=== PATIENT | female | born 2000 | race Caucasian/White ===

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

== ENCOUNTER 2018-07-04 03:19 | Inpatient (IN) ==
--- OUTSIDE RECORDS SUMMARY | 2018-07-04 03:22 | External Medical Summary | Continuity of Care Document ---
:2000 Author Name Pk Oh, Provider Address Unavailable Unavailable , Care Team Providers Name Role Phone Mela Muñoz Unavailable [email or web address], Yolis Unavailable [email or web address] ROBERTS Unavailable Unavailable Unavailable Unavailable Unavailable Problems Polycystic ovaries (256.4) (E28.2) Attention deficit hyperactivity disorder (ADHD) (314.01) (F9 0.9) Anxiety disorder (300.00) (F41.9) Common migraine without aura (346.10) (G43.009) Conductive hearing loss (389.00) (H90.2) Obesity (278.00) (E66.9) Prehypertension (796.2) (R03.0) Hypothyroidism (244.9) (E03.9) Allergies and Adverse Reactions Penicillins (Allergy) Medications metFORMIN HCl - 500 MG Oral Tablet; TAKE 2 TABLET Every twel ve hours Refills: 0 Levothyroxine Sodium 88 MCG Oral Tablet; TAKE 1 TABLET DAILY DIRECTED. SHARRON Roberts Start: 23-Oct-2014 Quantity: 90 Refills: 3 traZODone HCl - 50 MG Oral Tablet; TAKE 1 TABLET AT BEDTIME NEEDED FOR SLEEP. Althea Awad Start: 04-Apr-2017 Quantity: 30 Refills: 0 FLUoxetine HCl - 40 MG Oral Capsule; TAKE 40 MG Daily Althea Patel Start: 09-Jun-2018 Quantity: 30 Refills: 2 1.5-30 MG-MCG Oral Tablet; TAKE 1 TABLET DAILY DIRECTED. Althea Awad Start: 26-Mar-2014 Quantity: 1 Refills: 3 Procedures History of Myringotomy - With Ventilating Tube Insertion Status: Completed History of Tonsillectomy With Adenoidectomy Status: Completed History of Cholecystectomy Laparoscopic Status: Completed History of wisdom tooth extraction Statu s: Completed Immunizations DTaP On: 1998 HIB On: 1998 IPV On: 1998 DTaP On: 23-Feb-1999 HIB On: 23-Feb-1999 IPV On: 23-Feb-1999 DTaP On: 22-Apr-1999 HIB On: 22-Apr-1999 Hepatitis B On: 22-Apr-1999 Hepatitis B On: 27-Jul-1999 DTaP On: 03-Nov-1999 HIB On: 03-Nov-1999 IPV On: 03-Nov-1999 Hepatitis B On: 03-Nov-1999 MMR On: 03-Nov-1999 Varicella On: Jan-2000 DTaP On: 23-Oct-2003 IPV On: 23-Oct-2003 MMR On: 23-Oct-2003 Influenza On: 06-Dec-2003 Influenza On: 09-Jan-2004 Influenza On: 25-Nov-2005 Varicella On: 31-Jan-2007 Influenza On: 31-Jan-2007 Influenza (Nasal) On: 09-Feb-2008 Influenza On: 30-Jan-2009 15:55 Lot #: [id number], [employer] FluMist LIQD On: 28-Nov-2009 11:42 Lot #: [id number], [employer] Hepatitis A On: 10-Mar-2010 16:15 Lot #: [id number], [employer] Meningo (Menactra) On: 10-Mar-2010 16:16 Lot #: [id number], [employer] HPV (Gardasil) On: 10-Mar-2010 16:15 Lot #: [id number], [employer] Tdap (Adacel) On: 10-Mar-2010 16:16 Lot #: [id number], [employer] HPV (Gardasil) On: 30-Apr-2010 11:58 Lot #: [id number], [employer] FluMist LIQD On: 14-Oct-2010 12:44 Lot #: [id number], [employer] Hepatitis A On: 14-Oct-2010 12:45 Lot #: [id number], [employer] HPV (Gardasil) On: 14-Oct-2010 12:45 Lot #: [id number], [employer] FluMist LIQD On: 02-Dec-2011 16:09 Lot #: [id number], [employer] Influenza (Nasal) On: 09-Dec-2012 8:27 Lot #: [id number], [employer] FluMist Quadrivalent Nasal Suspension On: 21-Dec-2013 9:36 Lot #: [id number], [employer] Menactra Intramuscular Injectable On: 23-Oct-2014 13:01 Lot #: [id number], [employer] Fluzone INJ On: 23-Oct-2014 13:02 Lot #: [id number], [employer] Fluzone SUSP On: 11-Dec-2015 12:13 Lot #: [id number], [employer] Trumenba Intramuscular Suspension Prefilled Syringe On: 12:14 Lot #: [id number], [employer]. Trumenba Intramuscular Suspension Prefilled Syringe On: 2016 Lot #: [id number], [employer]. Fluzone Quadrivalent 0.5 ML Intramuscular Suspension P refilled Syringe On: Nov-2016 Lot #: [id number], [employer] Fluzone Quadrivalent 0.5 ML Intramuscular Suspension P refilled Syringe On: Dec-2017 Lot #: [id number], [employer] Family History Mother Family history of Depression with anxiety (300.4) (F41.8) St atus: Active Family history of hypothyroidism (V18.19) (Z83.49) Status: A ctive Family history of Eating Disorder Status: Active Family history of ovarian cyst (V18.7) (Z84.2) Status: Activ e Father Family history of Depression with anxiety (300.4) (F41.8) St atus: Active Family history of alcoholism (V17.0) (Z81.1) Status: Active Family history of Hyperlipidemia Status: Active aunt Family history of uterine leiomyoma (V18.7) (Z87.898) Status : Active great grandmother Family history of malignant neoplasm of breast (V16.3) (Z80. 3) Status: Active Grandmother Family history of hypothyroidism (V18.19) (Z83.49) Status: A ctive Family history of Type 2 Diabetes Mellitus Status: Active Family history of Acute Myocardial Infarction (V17.3) Status : Active uncle Family history of Bipolar disorder (296.80) (F31.9) Status: Active Grandparent Family history of anxiety disorder (V17.0) (Z81.8) Status: A ctive Sister Family history of Eating Disorder Status: Active Grandfather Family history of Type 2 Diabetes Mellitus Status: Active Social History - Smoking Status Never smoker Never smoker Plan of Treatment Planned Encounters Appointment; Yolis Paz M.D. Start: 14-Nov-2018 9:30 Requ est Planned Observations Planned Goals not documented Results No Known Results Results not documented Encounters Appointment; Bessie Baker PA-C 10-Feb-2018 15:00 Encounter Diagnosis: Problem not documented Appointment; Gauri Carty M.D. 10-Jan-2018 8:30 Encounter Diagnosis: Problem not documented Appointment; Paty Zelaya PA-C 25-Nov-2017 14:20 Encounter Diagnosis: Problem not documented Appointment; Naomi Marie PA-C 25-Jul-2017 16:00 Encounter Diagnosis: Problem not documented Appointment; Paty Zelaya PA-C 20-May-2017 8:20 Encounter Diagnosis: Problem not documented Appointment; Jacinta Awad M.D. 13-Dec-2016 14:30 Encounter Diagnosis: Problem not documented Appointment; Bessie Baker PA-C 02-Dec-2016 14:30 Encounter Diagnosis: Problem not documented Appointment; Taylor Leal PA-C 24-Nov-2016 16:00 Encounter Diagnosis: Problem not documented Appointment; Naomi Marie PA-C 17-Nov-2016 16:30 Encounter Diagnosis: Problem not documented Appointment; Paty Zelaya PA-C 16-Nov-2016 15:20 Encounter Diagnosis: Problem not documented Appointment; Naomi Marie PA-C 01-Nov-2016 15:30 Encounter Diagnosis: Problem not documented Appointment; Naomi Marie PA-C 27-Oct-2016 16:00 Encounter Diagnosis: Problem not documented Appointment; OBJJ SC2, Ultrasound 22-Oct-2016 13:00 Encounter Diagnosis: Problem not documented Appointment; Evelina Duncan PA-C 12-Oct-2016 15:00 Encounter Diagnosis: Problem not documented Appointment; Moncho Booth Au.D.|[facility] 23-Sep-2016 13:00 Encounter Diagnosis: Problem not documented Appointment; Naomi Marie PA-C 13-Sep-2016 16:45 Encounter Diagnosis: Problem not documented Appointment; Moncho Booth Au.D.|[facility] 03-Sep-2016 11:20 Encounter Diagnosis: Problem not documented Appointment; Yolis Paz M.D. 14-Nov-2018 9:30 Encounter Diagnosis: Problem not documented"
[2018-07-04 04:02] LABS: Pregnancy Test, Urine Negative (Negative)
[2018-07-04 04:02] LABS: Basophils # (auto) 0.01 K/uL (0-0.2); Basophils % (auto) 0.1 %; Eosinophils # (auto) 0.15 K/uL (0-0.5); Eosinophils % (auto) 1.5 %; Hematocrit (blood only) 41.6 % (37-47); Immature Granulocytes # (auto) 0.02 K/uL (0.00-0.02); Immature Granulocytes % (auto) 0.2 %; Lymphocytes # (auto) 2.87 K/uL (1.2-3.4); Lymphocytes % (auto) 28.9 %; Mean Corpuscular Hgb Conc 33.7 g/dL (32-36); Mean Corpuscular Volume 89.5 fL (80-100); Mean Platelet Volume 11.1 fL (7.4-10.4); Monocytes # (auto) 0.76 K/uL (0.11-0.59); Monocytes % (auto) 7.7 %; Neutrophils # (auto) 6.12 K/uL (1.4-6.5); Neutrophils % (auto) 61.6 %; Platelet Count 233 K/uL (130-400); RDW Coefficient of Variation 12.5 % (11.5-14.5); RDW Standard Deviation 40.4 fL (36.4-46.3); Red Blood Count 4.65 M/uL (4.2-5.4); White Blood Count 9.93 K/uL (4.8-10.8)
[2018-07-04 04:03] LABS: Appearance Urine Clear (Clear); Bacteria Urine Automated Negative (Negative); Bilirubin Urine Negative (Negative); Blood Urine Negative (Negative); Color Urine Yellow; Epithelial Cell Urine Auto >30 /lpf (0-5); Glucose Urine UA Negative (Negative); Ketones Urine Negative (Negative); Leukocyte Esterase Urine 1+ (Negative); Nitrite Urine Negative (Negative); Protein Urine Negative (Negative); RBC Urine Automated 0-4 /hpf (0-4); Specific Gravity Urine 1.021 (1.000-1.030); Urobilinogen Urine Negative (Negative); pH Urine 6.5 (4.5-7.5)
[2018-07-04 04:23] LABS: Amphetamines+Metham, Urine Neg (Neg); Barbiturates, Urine Neg (Neg); Benzodiazepine, Urine Neg (Neg); Cocaine, Urine Neg (Neg); MDMA (Ecstacy), Urine Neg (Neg); Methadone, Urine Neg (Neg); Opiate, Urine Neg (Neg); Phencyclidine, Urine Neg (Neg)
[2018-07-04 04:24] LABS: Albumin Level 3.3 gm/dl (3.4-5.0); BUN Creatinine Ratio 17.1 (10-20); Calcium 9.4 mg/dl (8.5-10.1); Est GFR (African American) 138.4; Est GFR (Non-African American) 119.4; Potassium 3.9 mmol/L (3.5-5.1)
[2018-07-04 04:28] LABS: Acetaminophen < 2 ug/ml (10-30); Salicylate < 1.7 mg/dl (2.8-20)
[2018-07-04 04:34] LABS: Albumin Globulin Ratio 0.7 (0.9-2); Bilirubin,Total 0.3 mg/dl (0.2-1); Globulin 4.5 gm/dl (2.5-4.0); T4 Free Thyroxine 1.19 ng/dl (0.8-1.6); Total Protein 7.8 gm/dl (6.4-8.2)
--- NOTE | 2018-07-04 05:15 | Emergency Department Note ---
Entered by Ant Murphy acting as a scribe for ED Provider Note Name: Ann Marie Salcedo Age: 17 Arrives Via: Triage Informant: Self CC: Mental Health Evaluation HPI: 17 y/o female arrives for evaluation of worsening depression beginning a few years ago. The patient states she has been depressed for a few years and has been feeling excessively down recently. She reports she believes it was triggered by her dog passing recently. 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 She states she was happy with the semester and was happy to come home before her dog . The patient reports her thought of wanting to hurt herself have worsened, and she has thought about strangling herself or overdosing on pills. She notes she has not physically hurt herself yet. The patient states she has been diagnosed with clinical depression and anxiety, and her psychiatrist is Kristin Kwon. She reports it is difficult for her to see her psychiatrist throughout the school year because she is located in [place], and the patient goes to school in [place]. The patient notes she was on Sertraline then Abilify and now Prozac. She states she does not think the Prozac is working. The patient reports her thoughts of wanting to hurt herself have increased to wanting to hurt her family and her animals. She notes she does not have medication for her anxiety. The patient states lost 6 pounds over the past week because she has not been eating. She reports a history of thyroid issues and taking hydrotheroxide ever since she can remember. The patient notes she is not violent and this is scary for her to think this way. She states her uncle killed himself 8 years ago. The patient denies abusive relationships at home, concerns for , abnormal menstrual cycles, alcohol use, drug use, and smoking use. She also notes her father has addictive tendencies. ROS: See above HPI for pertinent positives & negatives. A total of 10 systems reviewed and were otherwise negative. Past Medical History: Clinical depression, anxiety Past Surgical History: None Family History: Addictive tendencies Social History: Lives at home Home Medications: Prozac, hydrotheroxide Allergies Penicillins Physical: Vitals: BP 142/102, Pulse 118, Resp 20, Temp 98.6 F, O2Sat 97 Exam: GENERAL: Patient is sad appearing, crying, and depressed. EYES: No scleral icterus, unremarkable pupils. ENT: Mucous membranes moist, no nasal congestion. NECK: No masses appreciated, no meningismus, trachea is midline. RESPIRATORY: No dyspnea. Clear to auscultation and equal bilaterally. No wheeze, no rhonchi. CARDIOVASCULAR: Regular rate and rhythm. No murmurs, rubs, gallops appreciated. GASTROINTESTINAL: Abdomen soft, non-tender, no peritonitis. Bowel sounds positive. No masses appreciated. BACK: No midline tenderness, no CVA tenderness EXTREMITIES: Normal motion all extremities, no cyanosis, no edema. NEUROLOGIC: Alert and oriented, no acute motor or sensory deficits, no focal weakness, cranial nerves grossly intact. SKIN: No rash, no jaundice, no diaphoresis. PSYCH: Admits to suicidal ideations, homicidal ideations, and depression. ED Course: Prior Medical Record, Triage/Nursing Notes, Medications, Allergies reviewed by Me Vital Signs: reviewed and remarkable for HTN, Tachy (resolving as calming down) Labs: Reviewed and remarkable for Normal psych work-up Consults: Case Management feels inpatient criteria met which I and patient agree with Reassessments/Times: 0339: The patient was evaluated in room A07. A complete history and physical exam was performed. 0434: The patient is medially cleared. Local facilities are full. The patient is okay with waiting until morning to see if places open up for inpatient treatment. 0537: The mother is at the bedside. The patient is agreeable with me talking about her case in front of her mother. Both are agreeable to inpatient psych iatric treatment. 0630: The patient was signed out to Dr. Jones at the change of shift pending psychiatric placement. Blood pressure: Elevated - [place] to be Situation. Disposition: Signed out to Dr Jones pending placement Differentials: Mood Disorder, Overdose, Infectious, Electrolyte Abnormality, Cardiac, Hepatic, Endocrine, Toxicologic, Neurologic, amongst other pathologies Entertained. Medical Decision Making: Sad 17 yr old female recently finished first year of college and came home to house where her dog just recently. She is quite depressed with new suicidal and homicidal ideation. Is in no way aggressive nor violent while here nor for police. Medically is clear. She and mother are agreeable to inpatient treatment. Morning medications ordered. Signed out to Dr Jones pending placement. Impression: Suicidal Ideation Homicidal Ideation Depression Moncho Kwok MD The scribe's documentation has been prepared under my direction and personally reviewed by me in its entirety. I confirm that the note above accurately reflects all work, treatment, procedures, and medical decision making performed by me. 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: No Beliefs That Will Affect Care: None Feels Safe at Home: Yes Smoking Status: Never smoker Results & Data Vital Signs Vital Signs - 24 hr 07/04/18 08:51 07/04/18 13:30 Pulse Rate [Right Finger] 94 H 90 Pulse Rhythm [Right Finger] Regular Respiratory Rate 18 16 Respiratory Effort / Characteristics Non-Labored Non-Labored Respiratory Depth Normal Normal Respiratory Pattern Regular Blood Pressure [Right Arm] 146/84 H 121/71 Blood Pressure Mean [Right Arm] 104 87 Pulse Oximetry 99 95 Oxygen Delivery Method Room Air Room Air Home Medications Current Medication List: was personally reviewed by me Laboratory Data Attestation: I reviewed the patient's lab results. Result diagrams: 07/04/18 03:51 07/04/18 03:51 Lab Results 07/04/18 07/04/18 07/04/18 Range/Units 03:37 03:37 03:37 WBC (4.8-10.8) K/uL RBC (4.2-5.4) M/uL Hgb (12.0-16.0) g/dL Hct (37-47) % MCV (80-100) fL MCH (25-34) pg MCHC (32-36) g/dL RDW Std Deviation (36.4-46.3) fL RDW Coeff of Allie (11.5-14.5) % Plt Count (130-400) K/uL MPV (7.4-10.4) fL Immature Gran % (Auto) % Neut % (Auto) % Lymph % (Auto) % [place] % (Auto) % Eos % (Auto) % Baso % (Auto) % Immature Gran # (Auto) (0.00-0.02) K/uL Neut # (Auto) (1.4-6.5) K/uL Lymph # (Auto) (1.2-3.4) K/uL [place] # (Auto) (0.11-0.59) K/uL Eos # (Auto) (0-0.5) K/uL Baso # (Auto) (0-0.2) K/uL Sodium (136-145) mmol/L Potassium (3.5-5.1) mmol/L Chloride (98-107) mmol/L Carbon Dioxide (21-32) mmol/L Anion Gap (3-11) BUN (7-18) mg/dl Creatinine (0.6-1.2) mg/dl Est Cr Clr Drug Dosing ml/min Est GFR ( Amer) Est GFR (Non-Af Amer) BUN/Creatinine Ratio (10-20) Glucose (70-99) mg/dl Calcium (8.5-10.1) mg/dl Total Bilirubin (0.2-1) mg/dl AST (15-37) U/L ALT (12-78) U/L Alkaline Phosphatase (45-117) U/L Total Protein (6.4-8.2) gm/dl Albumin (3.4-5.0) gm/dl Globulin (2.5-4.0) gm/dl Albumin/Globulin Ratio (0.9-2) TSH (0.300-4.500) uIu/ml Free T4 (0.8-1.6) ng/dl Urine Color Yellow Urine Appearance Clear (Clear) Urine pH 6.5 (4.5-7.5) Ur Specific [place] 1.021 (1.000-1.030) Urine Protein Negative (Negative) Urine Glucose (UA) Negative (Negative) Urine Ketones Negative (Negative) Urine Blood Negative (Negative) Urine Nitrite Negative (Negative) Urine Bilirubin Negative (Negative) Urine Urobilinogen Negative (Negative) Ur Leukocyte Esterase 1+ H (Negative) Urine WBC (Auto) 10-30 H (0-5) /hpf Urine RBC (Auto) 0-4 (0-4) /hpf U Hyaline Cast (Auto) 1-5 (0-5) /lpf U Epithel Cells (Auto) >30 H (0-5) /lpf Urine Bacteria (Auto) Negative (Negative) Urine Test Negative (Negative) Salicylates (2.8-20) mg/dl Urine Opiates Screen Neg (Neg) Ur Methadone, Qual Neg (Neg) Acetaminophen (10-30) ug/ml Urine Barbiturates Neg (Neg) Ur Phencyclidine (PCP) Neg (Neg) U Amphetamin/Meth Scrn Neg (Neg) MDMA (Ecstasy) Screen Neg (Neg) U Benzodiazepines Scrn Neg (Neg) Ur Cocaine Metabolite Neg (Neg) U Marijuana (THC) Screen Neg (Neg) Ethyl Alcohol mg/dL (0-3) mg/dl 07/04/18 07/04/18 07/04/18 Range/Units 03:51 03:51 03:51 WBC 9.93 (4.8-10.8) K/uL RBC 4.65 (4.2-5.4) M/uL Hgb 14.0 (12.0-16.0) g/dL Hct 41.6 (37-47) % MCV 89.5 (80-100) fL MCH 30.1 (25-34) pg MCHC 33.7 (32-36) g/dL RDW Std Deviation 40.4 (36.4-46.3) fL RDW Coeff of Allie 12.5 (11.5-14.5) % Plt Count 233 (130-400) K/uL MPV 11.1 H (7.4-10.4) fL Immature Gran % (Auto) 0.2 % Neut % (Auto) 61.6 % Lymph % (Auto) 28.9 % [place] % (Auto) 7.7 % Eos % (Auto) 1.5 % Baso % (Auto) 0.1 % Immature Gran # (Auto) 0.02 (0.00-0.02) K/uL Neut # (Auto) 6.12 (1.4-6.5) K/uL Lymph # (Auto) 2.87 (1.2-3.4) K/uL [place] # (Auto) 0.76 H (0.11-0.59) K/uL Eos # (Auto) 0.15 (0-0.5) K/uL Baso # (Auto) 0.01 (0-0.2) K/uL Sodium 137 (136-145) mmol/L Potassium 3.9 (3.5-5.1) mmol/L Chloride 103 (98-107) mmol/L Carbon Dioxide 28 (21-32) mmol/L Anion Gap 6.0 (3-11) BUN 13 (7-18) mg/dl Creatinine 0.73 (0.6-1.2) mg/dl Est Cr Clr Drug Dosing 129.0 ml/min Est GFR ( Amer) 138.4 Est GFR (Non-Af Amer) 119.4 BUN/Creatinine Ratio 17.1 (10-20) Glucose 100 H (70-99) mg/dl Calcium 9.4 (8.5-10.1) mg/dl Total Bilirubin 0.3 (0.2-1) mg/dl AST 9 L (15-37) U/L ALT 17 (12-78) U/L Alkaline Phosphatase 92 (45-117) U/L Total Protein 7.8 (6.4-8.2) gm/dl Albumin 3.3 L (3.4-5.0) gm/dl Globulin 4.5 H (2.5-4.0) gm/dl Albumin/Globulin Ratio 0.7 L (0.9-2) TSH 3.770 (0.300-4.500) uIu/ml Free T4 1.19 (0.8-1.6) ng/dl Urine Color Urine Appearance (Clear) Urine pH (4.5-7.5) Ur Specific [place] (1.000-1.030) Urine Protein (Negative) Urine Glucose (UA) (Negative) Urine Ketones (Negative) Urine Blood (Negative) Urine Nitrite (Negative) Urine Bilirubin (Negative) Urine Urobilinogen (Negative) Ur Leukocyte Esterase (Negative) Urine WBC (Auto) (0-5) /hpf Urine RBC (Auto) (0-4) /hpf U Hyaline Cast (Auto) (0-5) /lpf U Epithel Cells (Auto) (0-5) /lpf Urine Bacteria (Auto) (Negative) Urine Test (Negative) Salicylates < 1.7 L (2.8-20) mg/dl Urine Opiates Screen (Neg) Ur Methadone, Qual (Neg) Acetaminophen < 2 L (10-30) ug/ml Urine Barbiturates (Neg) Ur Phencyclidine (PCP) (Neg) U Amphetamin/Meth Scrn (Neg) MDMA (Ecstasy) Screen (Neg) U Benzodiazepines Scrn (Neg) Ur Cocaine Metabolite (Neg) U Marijuana (THC) Screen (Neg) Ethyl Alcohol mg/dL (0-3) mg/dl 07/04/18 Range/Units 03:51 WBC (4.8-10.8) K/uL RBC (4.2-5.4) M/uL Hgb (12.0-16.0) g/dL Hct (37-47) % MCV (80-100) fL MCH (25-34) pg MCHC (32-36) g/dL RDW Std Deviation (36.4-46.3) fL RDW Coeff of Allie (11.5-14.5) % Plt Count (130-400) K/uL MPV (7.4-10.4) fL Immature Gran % (Auto) % Neut % (Auto) % Lymph % (Auto) % [place] % (Auto) % Eos % (Auto) % Baso % (Auto) % Immature Gran # (Auto) (0.00-0.02) K/uL Neut # (Auto) (1.4-6.5) K/uL Lymph # (Auto) (1.2-3.4) K/uL [place] # (Auto) (0.11-0.59) K/uL Eos # (Auto) (0-0.5) K/uL Baso # (Auto) (0-0.2) K/uL Sodium (136-145) mmol/L Potassium (3.5-5.1) mmol/L Chloride (98-107) mmol/L Carbon Dioxide (21-32) mmol/L Anion Gap (3-11) BUN (7-18) mg/dl Creatinine (0.6-1.2) mg/dl Est Cr Clr Drug Dosing ml/min Est GFR ( Amer) Est GFR (Non-Af Amer) BUN/Creatinine Ratio (10-20) Glucose (70-99) mg/dl Calcium (8.5-10.1) mg/dl Total Bilirubin (0.2-1) mg/dl AST (15-37) U/L ALT (12-78) U/L Alkaline Phosphatase (45-117) U/L Total Protein (6.4-8.2) gm/dl Albumin (3.4-5.0) gm/dl Globulin (2.5-4.0) gm/dl Albumin/Globulin Ratio (0.9-2) TSH (0.300-4.500) uIu/ml Free T4 (0.8-1.6) ng/dl Urine Color Urine Appearance (Clear) Urine pH (4.5-7.5) Ur Specific [place] (1.000-1.030) Urine Protein (Negative) Urine Glucose (UA) (Negative) Urine Ketones (Negative) Urine Blood (Negative) Urine Nitrite (Negative) Urine Bilirubin (Negative) Urine Urobilinogen (Negative) Ur Leukocyte Esterase (Negative) Urine WBC (Auto) (0-5) /hpf Urine RBC (Auto) (0-4) /hpf U Hyaline Cast (Auto) (0-5) /lpf U Epithel Cells (Auto) (0-5) /lpf Urine Bacteria (Auto) (Negative) Urine Test (Negative) Salicylates (2.8-20) mg/dl Urine Opiates Screen (Neg) Ur Methadone, Qual (Neg) Acetaminophen (10-30) ug/ml Urine Barbiturates (Neg) Ur Phencyclidine (PCP) (Neg) U Amphetamin/Meth Scrn (Neg) MDMA (Ecstasy) Screen (Neg) U Benzodiazepines Scrn (Neg) Ur Cocaine Metabolite (Neg) U Marijuana (THC) Screen (Neg) Ethyl Alcohol mg/dL < 3.0 (0-3) mg/dl Administered Medications Fluoxetine HCl (Prozac) 40 mg PO DAILY YING Stop: 08/03/18 05:59 Last Admin: 07/04/18 16:49 Dose: Not Given Documented by: [id number] Discontinued Medications Levothyroxine Sodium (Synthroid) 88 mcg PO DAILY YING Stop: 08/03/18 05:59 Last Admin: 07/04/18 06:27 Dose: 88 mcg Documented by: [id number] Non-Formulary Medication (Norethindrone-E.Estradiol-Iron [[place] Fe 1.5 (28)]) 1 tab PO DAILY YING Stop: 08/03/18 05:59 Last Admin: 07/04/18 16:48 Dose: Not Given Documented by: [id number] Blood Pressure Blood Pressure Findings: Elevated blood pressure Blood Pressure Disposition: elevated BP felt to be situational Discharge Plan Visit Data *Final* Discharge Date/Time: 07/04/18 15:08 Chief Complaint: Mental Health Evaluation Stated Complaint: PSYCHIATRIC CARE ED Provider: Genaro Valerio Discharge Problem: Suicidal ideation, Depression, Homicidal ideation Patient Disposition: Still a Patient Discharge Instructions Interventions: ED Discharge Assessment Last Done: 07/04/18 15:08 Discharge Problem: Depression Qualifiers: Depression Type: major depressive disorder Major depression recurrence: recurrent Active/Remission status: currently active Major depression episode severity: severe Psychotic features: without psychotic features Qualified Code(s): F33.2 - Major depressive disorder, recurrent severe without psychotic features The scribe's documentation has been prepared under my direction and personally reviewed by me in its entirety. I confirm that the note above accurately reflects all work, treatment, procedures, and medical decision making performed by me.
[2018-07-04] MEDS ORDERED: NORETHINDRONE E ESTRADIOL IRON PO SCH (06:00)
[2018-07-04] MEDS ORDERED: LEVOTHYROXINE SODIUM 88 MCG TABLET PO SCH (06:00)
--- NOTE | 2018-07-04 12:10 | Emergency Department Note ---
ED Visit Note Patient admitted to [facility]. . : Depression Qualifiers: Depression Type: major depressive disorder Major depression recurrence: recurrent Active/Remission status: currently active Major depression episode severity: severe Psychotic features: without psychotic features Qualified Code(s): F33.2 - Major depressive disorder, recurrent severe without psychotic features
[2018-07-04] MEDS ORDERED: ALUMINUM/MAGNESIUM SUSP 30 ML UDC PO PRN (14:45)
[2018-07-04] MEDS ORDERED: SODIUM CHLORIDE 0.65% NA SOLN 45 ML (OCEAN) PRN (14:45)
[2018-07-04] MEDS ORDERED: BISMUTH SUBSALICYLATE PER ML OMNICELL CHARGE PO PRN (14:45)
[2018-07-04] MEDS ORDERED: MAGNESIUM HYDROXIDE SUSP 30 ML UDC PO PRN (14:45)
[2018-07-04] MEDS ORDERED: ACETAMINOPHEN 325 MG TAB PO PRN (14:45)
[2018-07-04 15:22] VITALS: O2SAT 95
--- NOTE | 2018-07-04 15:39 | Emergency Department Note ---
Entered by Feliciano Carver acting as a scribe for Genaro Valerio MD ED Visit Note 1503: I assumed care of this patient from Dr. Jones. The patient is currently here voluntary. 201 was signed and the patient did go to [facility]. . : Depression Qualifiers: Depression Type: major depressive disorder Major depression recurrence: recurrent Active/Remission status: currently active Major depression episode severity: severe Psychotic features: without psychotic features Qualified Code(s): F33.2 - Major depressive disorder, recurrent severe without psychotic features The scribe's documentation has been prepared under my direction and personally reviewed by me in its entirety. I confirm that the note above accurately re flects all work, treatment, procedures, and medical decision making performed by me.
[2018-07-04] MEDS: FLUOXETINE HCL 20 MG CAP PO SCH (16:49)
[2018-07-05] MEDS: LEVOTHYROXINE SODIUM 88 MCG TABLET PO SCH (09:12)
[2018-07-05] MEDS: FLUOXETINE HCL 20 MG CAP PO SCH (09:14)
[2018-07-05] MEDS: PATIENT'S OWN ORAL CONTRACEPTIVE PO SCH (09:14)
--- NOTE | 2018-07-05 09:16 | History & Physical ---
Date of Service July 05, 2018 Impression / Recommendations Impression 17-year-old female admitted voluntarily for inpatient psychiatric treatment due to reports of worsening intrusive thoughts about killing herself as well as her family members. Patient admits these thoughts are distressing and that if she does not desire to act on the thoughts. Patient denies any behavioral compulsions related to the thoughts, therefore does not meet formal criteria for an obsessive-compulsive disorder. We will continue to gather collateral information from family as patient states these intrusive thoughts have only developed within the last year and a half. We will encourage patient to involve her parents and a family meeting, and we will attempt to gather collateral information from them. We will request outpatient records from her psychiatric prescriber to gain a better sense of treatment history. Patient is only recently been started on Prozac and titrated to a dose of 40 mg within the last few weeks. She is agreeable to further titration of the medication to 60 mg starting today, and may require even further titration during her hospitalization in order to target these anxious thoughts. Risks and benefits of the medication adjustments were reviewed, patient verbalized understanding and is agreeable to treatment plan outlined above. Patient will be encouraged to participate in group and recreational programming in order to process events leading to admission, and develop healthy and effective coping strategies to manage anxiety in the future. Treatment goal will be for elimination of these intrusive thoughts, and reduction of distress to the patient. At time of discharge patient will be able to contract for safety, and will have appropriate aftercare arrangements. At this time inpatient psychiatric treatment is medically necessary due to severity of these intrusive harmful thoughts, and high risk of harm to self or others if patient is discharged prematurely. Dr. Shyann Adams was directly involved in review and discussion of the patient's case and participated in medical decision making regarding treatment recommendations. (1) Suicidal ideation: 07/05 - Intrusive thoughts/anxiety is distressing to the point of patient considering suicide to make the thoughts stop - though is not an active desire of hers otherwise - Admitted to a locked inpatient behavioral health unit, on q15 minute safety checks - Encourage medication initiation/adjustments as indicated - Encourage participation in group and recreational therapies - Gather collateral information from outpatient providers - Suggest family meeting to involve outpatient supports in safety planning - Arrange appropriate aftercare (2) Anxiety: 5/15 - Anxiety Disorder, NOS: Differential includes generalized anxiety disorder, panic disorder, obsessive compulsive disorder, and other anxiety disorder. Pt has intrusive thoughts/obsessions consistent with OCD, but does not report any criteria consistent with compulsions - Only recently re-started on fluoxetine, taking 40mg. Given an additional 20mg dose this morning, and will titrate to 60mg daily starting tomorrow morning - Highly suggesting family meeting to discuss intrusive thoughts, as only just disclosed to parents (3) Hypothyroidism: 07/05 - Continue home dosage of levothyroxine (4) Polycystic ovarian syndrome: 07/05 - Home OCP was brought in with patient, order completed for patient to take as prescribed Risk Factors Assessment Male: No : Yes Do You Have Access To A Gun?: No Health Problems: Yes Mental Health Diagnoses: Yes Substance Use Disorders: No Previous Attempt: No Family History of Suicide: Yes Previous Psychiatric Hospitalization: No Hopelessness: No Smoker: No Protective Factors Assessment Judaism Beliefs: No : No Responsible for Young Children: No Employed: Yes Stable Relationships: No Supportive Family: Yes Psychiatric History Identifying Data ANN MARIE SALCEDO is a 17-year-old F who currently lives in [place] with her parents and younger sister. Pt has a reported history of anxiety and depression, and was admitted on 07/04/18 14:45 on a 201 voluntary commitment for thoughts of harming herself and her family, with specific thoughts to overdose, or stab or strangle herself. Information is ED documentation and from the patient herself, and is considered to be reliable. Chief Complaint "It all started in November 2016. I would just be in school and have the thoughts of tripping people." History of Present Illness Ann Marie Salcedo is a 17-year-old female who just completed her freshman year at [employer]. Patient is admitted voluntarily for worsening thoughts to harm herself or her family. Patient was brought to the emergency room after she had texted [employer] [facility] [facility]. She states "they must have pinged my phone or something." Patient states that after the series of text messages, police arrived at her house, then bringing her to the emergency room. Patient was ultimately admitted voluntarily for treatment. Patient states most significant recent stressor has been the of her 14-year-old dog. Patient reports that she requested her parents put the dog down while she was still at school, in order to be distracted with her academics. Patient shares with this provider that she had a very difficult time returning home at the end of the semester, knowing that her dog was not there. Otherwise, the patient states she is unsure if there are any other significant causes to her worsening mood and intrusive thoughts. Patient reports a history of anxiety and depression for which she has seen Kristin Kwon PA-C, admittedly irregularly due to her school schedule. Patient states she began receiving outpatient psychiatric treatment in November 2016 after she began to develop intrusive thoughts of needing to trip people at school as well as, "make moves on guys, that is not something I would normally do." Patient believes that these thoughts developed as a result of increased stress related to graduating from high school. Patient states that she was able to resist acting on these intrusive thoughts at that time. These thoughts have continued on and off for the past few years, eventually developing into thoughts to harm herself and her family. Patient states his thoughts have worsened significantly in the last 1-2 weeks, and she is worried that she may act on them. Patient states she does not have an active desire to follow through on the thoughts and end her life or cause harm to her family members. Patient reports thoughts of killing herself by overdosing on medications, strangling herself, or stabbing herself. She admits to thoughts of harming family members by stabbing them. Patient admits that these thoughts are distressing for her, to the point of avoiding the kitchen so she is not in contact with knives in the home. Patient states she does not have formal suicidal thoughts, but admits she had considered that ending her life may also put an end to her intrusive thoughts. Patient states this is not something she believes that she would act on and is not something she desires as, "I have plans. I want to travel to [place]. There is so much I want to do." Patient states that she began treatment for depression and anxiety in 2016 and is periodically been on antidepressant medications since that time. She recalls a trial of sertraline which had recently been discontinued. Patient was just recently prescribed fluoxetine, and had just titrated to a dose of 40 mg within the last week or so. Patient does not feel that she has had sufficient time to observe any benefit from the medication thus far. Patient reports depressive symptoms of decreased energy, anhedonia with related to hobbies are coloring of photography specifically, she admits to napping during the day due to restless sleep. The patient does admit to a weight loss of 6 pounds within the last week, but believes this also may be related to her recent URI. Patient reports nonspecific anxiety and racing thoughts at times. She believes that she has experienced anxiety attacks, characterizing these moments by chest tightness, diaphoresis, tendency to bite her cheek or lips, headache, nausea, and occasional shortness of breath. Patient states that anxiety during these times is heightened by the fact that she believes she is having a heart attack. Patient denies any history of other intrusive thoughts earlier in life, denies any behavioral compulsions related to these thoughts. Pt denies SIB, A/V hallucinations, paranoia, parisa/hypomania, other symptoms more suggestive of a bipolar presentation, PTSD, eating disorder, and other specific psychiatric symptoms. Past Psychiatric History Previous Psych History: Patient admits to initiation of outpatient psychiatric treatment in 2017, after she began developing intrusive, anxious thoughts. She denies any previous psychiatric admissions, no previous suicide attempts, no his tory of any self-injurious behaviors. Current Psychiatric Diagnosis: Depressive Disorder NOS Outpatient Services: Medication Management - Kristin Kwon PA-C - [place] Do You Have Access To A Gun?: No Describe Attempts in the Past: Denies Past Medication Trials: 1. Adderall - ADHD, ineffective 2. Zoloft - "I did the genetic testing" 3. Prozac - recently restarted Past Head Trauma/Neuro History History of Concussion/Seizure: No Allergies Allergy/AdvReac Type Severity Reaction Status Date / Time Penicillins Allergy Mild HIVES Unverified 07/04/18 04:14 amoxicillin Allergy Unknown HIVES Verified 07/04/18 04:14 Home Medications Home Medications Medication Instructions Recorded Confirmed Type fluoxetine 40 mg PO DAILY 07/04/18 07/04/18 History levothyroxine 88 mcg PO DAILY 07/04/18 07/04/18 History norethindrone-e.estradiol-iron 1 tab PO DAILY 07/04/18 07/04/18 History [Salud Fe 1.5/30 (28)] trazodone 50 mg PO HS PRN 07/04/18 07/04/18 History Family History Family History of: Depression, Alcoholism/Drug Abuse (father; sober 4 years ) and Suicide Completion Family Mental Health History Comment: father's brother completed suicide by hanging; 2 [id number] distant uncles also completed suicide Alcohol History Hx of Alcohol Use Over the Past 12 Months: No AUDIT Total Score: 0 Smoking Use Have You Smoked or Used Tobacco Products in the Last 30 Days: No Smoking Status: Never smoker Substance History Hx of Prescription Med Misuse Over the Past 12 Months: No Hx of Over the Counter Med Misuse Over the Past 12 Months: No Hx of Inhalent Misuse Over the Past 12 Months: No Hx of Organic Substance Use Over the Past 12 Months: No Hx of Illegal Substances/Street Drug Use Over Past 12 Months: No Problems as a Result of Past Substance Use: None Identified Personal History Living Arrangements: Home (with parents and younger sister) Childhood: Patient was raised by both parents, younger sister is currently 16 years old. Patient describes her family as supportive. She also finds comfort from there are many family pets. 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 Patient denies any history of physical or sexual abuse. Patient History Medical History Clinical depression Hypothyroidism Anxiety Surgical History No pertinent past surgical history Family History Other No pertinent family history Social History Preferred Language: Indonesian Communication Ability: Effective Sample Builder Required: No Beliefs That Will Affect Care: None Feels Safe at Home: Yes Smoking Status: Never smoker Review of Systems Review of Systems: Constitutional: reports fatigue and 6lb weight loss in the last week EENT: reports hearing loss related to placement of tympanostomy tubes Cardiovascular: reports chest pain with anxiety Respiratory: denied Gastrointestinal: reports nausea and constipation with anxiety Neurological: denied Psychiatric: denies symptoms other than stated above Total of at least 10 systems reviewed, pertinent positives as above and in HPI. Physical Exam Psychiatric: Orientation: alert, oriented x 3 and cooperative Apperance: appropriately dressed and appropriately groomed Eye Contact: good eye contact Motor Behavior: steady gait and station and no abnormal motor movements Speech: normal rate/rhythm/volume of speech (soft tone) Affect: + anxious af fect (Mildly), + blunted affect and mood congruent with affect "Anxious a lot of the time, worried I might hurt someone" Thought Process: goal directed thought process, linear/logical thought process and clear/coherent thought process Thought Content: reality based without delusions Suicidal Thoughts: denies suicidal thoughts Current suicidality, but states she has considered suicide as a way to escape the intrusive thoughts. She denies a separate plan in which she would consider ending her own life; however, the intrusive thoughts have been of overdosing, stabbing herself, or strangling herself. She denies desire to follow through with these thoughts. Homicidal Thoughts: denies homicidal thoughts Patient denies true intention to harm anyone; however, admits to frequent intrusive thoughts to harm her family member s by strangling or stabbing. Hallucinations: no auditory hallucinations and no visual hallucinations Denies that intrusive thoughts are auditory floyd llucinations commanding her to harm herself and others Cognition: recent memory grossly intact, remote memory grossly intact, attention grossly intact and language grossly intact Estimated Intelligence: consistent with education level Insight: + fair insight Judgement: + fair judgement Vital Signs (Past 24 Hours): Last Vital Signs Temp 36.8 C 07/05/18 06:57 Pulse 80 07/05/18 06:59 Resp 16 07/05/18 06:57 BP 134/88 07/05/18 06:59 Pulse Ox 95 07/04/18 13:30 Exam Statement: A physical exam was performed in the ED prior to admission to the unit by Dr. Moncho Kwok MD. I accept that physical as correct/medical clearance for the inpatient physical exam. Results & Data Current Inpatient Medications Current Inpatient Medications: Current Inpatient Medications Acetaminophen (Tylenol) 650 mg PO Q4H PRN PRN Reason: Headache or Minor Fever Stop: 08/03/18 14:44 Al Hydrox/Mg Hydrox/Simethicone (Maalox) 30 ml PO Q4H PRN PRN Reason: GI Upset Stop: 08/03/18 14:44 Bismuth Subsalicylate (Kaopectate) 15 ml PO PRN PRN PRN Reason: Loose Stool Stop: 08/03/18 14:44 Fluoxetine HCl (Prozac) 40 mg PO DAILY YING Stop: 08/03/18 05:59 Last Admin: 07/04/18 16:49 Dose: Not Given Documented by: Hydroxyzine HCl (Vistaril) 25 mg PO Q4H PRN PRN Reason: Anxiety Stop: 08/03/18 14:44 Hydroxyzine HCl (Vistaril) 50 mg PO HSZ PRN PRN Reason: Insomnia Stop: 08/03/18 14:44 Levothyroxine Sodium (Synthroid) 88 mcg PO DAILYBB YING Stop: 08/04/18 07:59 Magnesium Hydroxide (Milk Of Magnesia) 30 ml PO DAILY PRN PRN Reason: Heartburn Stop: 08/03/18 14:44 Miscellaneous (Patient's Own Oral Contraceptive) 1 ea PO DAILY YING Stop: 08/04/18 08:59 Sodium Chloride ([place] Nasal) 1 - 2 sprays NA PRN PRN PRN Reason: Nasal Dryness/Congestion Stop: 08/03/18 14:44 CPT Code CPT Code Initial Hospital Care: 26273
[2018-07-05] MEDS ORDERED: FLUOXETINE HCL 20 MG CAP PO ONE (10:50)
[2018-07-06] MEDS: LEVOTHYROXINE SODIUM 88 MCG TABLET PO SCH (08:00)
[2018-07-06] MEDS: PATIENT'S OWN ORAL CONTRACEPTIVE PO SCH (08:37)
[2018-07-06] MEDS: FLUOXETINE HCL 20 MG CAP PO SCH (08:37)
--- NOTE | 2018-07-06 11:30 | Psychiatric Progress Note ---
Date of Service July 06, 2018 Impression / Recommendations Impression Patient is good has improved somewhat, she is appearing mildly brighter today. She does report ongoing intrusive anxious thoughts of causing harm to herself or her family, though these have reduced somewhat in severity. Patient continues to be fearful that her family will be afraid of her, and admits concern that she will have to remain in the hospital "forever." Patient continues to deny a true desire to follow through with any of these thoughts, which is causing increased distress. Patient is somewhat anxious for her family meeting this afternoon, as she is worried how her family will react. Patient was encouraged to report any intrusive self-harm thoughts to staff, especially specific plans develop. Patient was encouraged to continue utilizing various distraction techniques. Patient clearly states that she would not feel safe outside of the hospital setting, and would agree with that she is at high risk of harm to self or others at this time given her ongoing thoughts. We will continue to work with the patient during her admission to reduce states thoughts and assist in the development of coping strategies that would prevent them from causing her distress. At this time ongoing inpatient mental health treatment is medically necessary to avoid risk of harm to self or others which is highly likely if discharged prematurely. (1) Suicidal ideation: 07/05 - Intrusive thoughts/anxiety is distressing to the point of patient considering suicide to make the thoughts stop - though is not an active desire of hers otherwise - Admitted to a locked inpatient behavioral health unit, on q15 minute safety checks - Encourage medication initiation/adjustments as indicated - Encourage participation in group and recreational therapies - Gather collateral information from outpatient providers - Suggest family meeting to involve outpatient supports in safety planning - Arrange appropriate aftercare 07/06 - Reports ongoing thoughts to harm self physically, avoiding with distraction techniques (2) Anxiety: 07/05 - Anxiety Disorder, NOS: Differential includes generalized anxiety disorder, panic disorder, obsessive compulsive disorder, and other anxiety disorder. Pt has intrusive thoughts/obsessions consistent with OCD, but does not report any criteria consistent with compulsions - Only recently re-started on fluoxetine, taking 40mg. Given an additional 20mg dose this morning, and will titrate to 60mg daily starting tomorrow morning - Highly suggesting family meeting to discuss intrusive thoughts, as only just disclosed to parents 07/06 - Continue fluoxetine at 60mg; consider if further titration is necessary to target intrusive, anxious thoughts - Family meeting with parents scheduled for this afternoon (3) Hypothyroidism: 07/05 - Continue home dosage of levothyroxine (4) Polycystic ovarian syndrome: 07/05 - Home OCP was brought in with patient, order completed for patient to take as prescribed Risk Factors Assessment Male: No : Yes Do You Have Access To A Gun?: No Health Problems: Yes Mental Health Diagnoses: Yes Substance Use Disorders: No Previous Attempt: No Family History of Suicide: Yes Previous Psychiatric Hospitalization: No Hopelessness: No Smoker: No Protective Factors Assessment Presybeterian Beliefs: No : No Responsible for Young Children: No Employed: Yes Stable Relationships: No Supportive Family: Yes Interval History Identifying Information GINO SANCHEZ is a 17-year-old F who currently lives in [place] with her parents and younger sister. Pt has a reported history of anxiety and depression, and was admitted on 07/04/18 14:45 on a 201 voluntary commitment for thoughts of harming herself and her family, with specific thoughts to overdose, or stab or strangle herself. Information is ED documentation and from the patient herself, and is considered to be reliable. Chief Complaint "I had a dream last night, that's not something that's happened in a while." Review of Systems Notes Constitutional: reports headache yesterday, believes due to mild dehydration Cardiovascular: denied Respiratory: denied Gastrointestinal: denied Neurological: denied Psychiatric: denies symptoms other than stated above Total of at least 10 systems reviewed, pertinent positives as above and in HPI. Sleep Information Total Hours of Sleep: 6.5 Sleep Comments: patient slept in the quiet room per her request, due to roommate snoring. Meal Information Percent Meal Consumed - Breakfast: 75 Percent Meal Consumed - Lunch: 100 Percent Meal Consumed - Dinner: 50 Subjective Subjective Patient was seen & assessed and interval progress reviewed with Nursing. Staff report the patient is scheduled for a meeting with her parents this afternoon. It was reported that she had still been experiencing some intrusive thoughts throughout the evening. Patient was seen today to assess progress since admission. She states that she had a "breakdown" last evening and found it helpful to process her thoughts with 1 of the counselors. Patient states "I just kept thinking that these thoughts will never go away, but I would always have to be here, that my family would not be safe." The patient admits that her "almost obsessive" thoughts have continued on the unit, but are less severe when compared to admission. Patient shares with this provider that prior to admission she had had intrusive thoughts to "pull my car off the road, knowing my family was with me. One time I had a friend with me." The patient continues to deny an actual desire to act on these thoughts, and continues to find them distressing. Patient is unable to contract for safety outside of the hospital, stating she is "still scared of knives, scared I might be tempted." Patient states "I do not think I would be ready to leave soon." Patient verbalizes to this provider that she has had thoughts on the unit of "using pens, grabbing and into my leg." She states she continues to focus on goals of completing coloring pages, watching TV, and being supportive to other patients on the unit -which provides her with some distraction from these thoughts. Patient states she has not been experiencing any side effects from titration of fluoxetine. She denies any other needs or concerns today. Physical Exam Psychiatric Orientation: alert, oriented x 3 and cooperative Apperance: appropriately dressed and appropriately groomed Eye Contact: good eye contact Motor Behavior: steady gait and station and no abnormal motor movements Speech: normal rate/rhythm/volume of speech (soft tone) Affect: euthymic affect and + anxious affect (Mildly) Mood: + anxious mood (Admits her intrusive thoughts continue to cause distress) "a little better today, I had a breakdown last night" Thought Process: goal directed thought process and clear/coherent thought process Thought Content: reality based without delusions Suicidal Thoughts: denies suicidal thoughts (Reports on unit to harm self) Homicidal Thoughts: denies homicidal thoughts Hallucinations: no auditory hallucinations and no visual hallucinations Cognition: recent memory grossly intact, remote memory grossly intact, attention grossly intact and language grossly intact Estimated Intelligence: consistent with education level Insight: + limited insight Judgement: + fair judgement Vital Signs (Past 24 Hours) Last Vital Signs Temp 36.7 C 07/06/18 06:44 Pulse 91 H 07/06/18 06:45 Resp 16 07/06/18 06:44 BP 124/85 07/06/18 06:45 Pulse Ox 95 07/04/18 13:30 Results & Data Current Inpatient Medications Current Inpatient Medications: Current Inpatient Medications Acetaminophen (Tylenol) 650 mg PO Q4H PRN PRN Reason: Headache or Minor Fever Stop: 08/03/18 14:44 Last Admin: 07/05/18 12:48 Dose: 650 mg Documented by: Al Hydrox/Mg Hydrox/Simethicone (Maalox) 30 ml PO Q4H PRN PRN Reason: GI Upset Stop: 08/03/18 14:44 Bismuth Subsalicylate (Kaopectate) 15 ml PO PRN PRN PRN Reason: Loose Stool Stop: 08/03/18 14:44 Fluoxetine HCl (Prozac) 60 mg PO DAILY YING Stop: 08/05/18 08:59 Last Admin: 07/06/18 08:37 Dose: 60 mg Documented by: Hydroxyzine HCl (Vistaril) 25 mg PO Q4H PRN PRN Reason: Anxiety Stop: 08/03/18 14:44 Hydroxyzine HCl (Vistaril) 50 mg PO HSZ PRN PRN Reason: Insomnia Stop: 08/03/18 14:44 Levothyroxine Sodium (Synthroid) 88 mcg PO DAILYBB YING Stop: 08/04/18 07:59 Last Admin: 07/06/18 08:00 Dose: 88 mcg Documented by: Magnesium Hydroxide (Milk Of Magnesia) 30 ml PO DAILY PRN PRN Reason: Heartburn Stop: 08/03/18 14:44 Miscellaneous (Patient's Own Oral Contraceptive) 1 ea PO DAILY YING Stop: 08/04/18 08:59 Last Admin: 07/06/18 08:37 Dose: 1 ea Documented by: Sodium Chloride ([place] Nasal) 1 - 2 sprays NA PRN PRN PRN Reason: Nasal Dryness/Congestion Stop: 08/03/18 14:44 Post Discharge Appointments Primary Care Physician Name Of Family Doctor: DUDLEY Awad Primary Care Provider Appointment Comment: [id number] [facility] [place] [address] Psychiatrist Name of Psychiatrist: Conrado Olivo PA-C Psychiatrist's Psychiatric Appointment Comment: [address] [place] [address] Therapist Name of Therapist: [facility] (needs established) Therapist's Therapy Appointment Comment: [address] [place] [address] [address] [employer] [employer] Name of Main Gal[employer] Scullion: Isn't sure if she has one or not Contact Information Discharge Discharge Address: [address] [place] [address], [place] [address] CPT Code CPT Code 47460
[2018-07-07] MEDS: LEVOTHYROXINE SODIUM 88 MCG TABLET PO SCH (08:03)
[2018-07-07] MEDS: FLUOXETINE HCL 20 MG CAP PO SCH (08:44)
[2018-07-07] MEDS: PATIENT'S OWN ORAL CONTRACEPTIVE PO SCH (08:44)
--- NOTE | 2018-07-07 13:58 | Psychiatric Progress Note ---
Date of Service July 07, 2018 Impression / Recommendations Impression The patient continues to report improvement in her mood. Her affect remains somewhat subdued, but she does smile and chuckle appropriately several times during today's examination. Her report is that she has always been a somewhat anxious person, and at least 2 first-degree relatives suffer from anxiety, namely her mother and her younger sister. The patient notes that after she chose to do a paper on serial killers in high school she began to experience intrusive, ego dystonic thoughts of self-harm, and of physically harming other people. These thoughts were not associated with any intent and she found them extremely troubling. She notes that these intrusive alien thoughts have been present for nearly 2 years at this point and she also notes that the thoughts tend to become more intensive, more frequent, and more intrusive when she is under stress. The current stressor is identified as the of her beloved pet dog approximately 2 weeks ago. Initially, the patient had sought hospitalization because she was afraid that even though she had no intent to act on any of these thoughts, and even though she knew they were completely alien to her and to her sense of who she is, she felt that, somehow, she might "slip" and act on themeven though she has no history of self-injurious behaviors and no history of causing physical harm to the person or property of others. During her stay here, she has availed herself of individual and group therapies, and has also taken opportunity to educate herself about obsessive-compulsive disorder and, more specifically, about intrusive harm thoughts. She has learned skills that allow her to experience the thoughts without becoming extremely anxious about them, she has also learned distracting technics, and she recognizes at this point that they are simply thoughts and are not predictable of actions. She feels that she could benefit from another several days of psychiatric hospitalization so that she can continue to work on developing improved coping strategies, within the context of her recognition but the obsessive thoughts tend to worsen while she is feeling anxious and under stress. The patient does enjoy the support of a number of good friends, and she also tells us that her family is very supportive. The patient's dose of fluoxetine has been increased from 40 mg a day to 60 mg a day, and the patient tells us that her mood is also improved. Intrusive, ego dystonic thoughts have diminished, and her affect is brighter. (1) Suicidal ideation: 07/05 - Intrusive thoughts/anxiety is distressing to the point of patient considering suicide to make the thoughts stop - though is not an active desire of hers otherwise - Admitted to a locked inpatient behavioral health unit, on q15 minute safety checks - Encourage medication initiation/adjustments as indicated - Encourage participation in group and recreational therapies - Gather collateral information from outpatient providers - Suggest family meeting to involve outpatient supports in safety planning - Arrange appropriate aftercare 07/06 - Reports ongoing thoughts to harm self physically, avoiding with distraction techniques 07/07 -The patient reports that she is continuing to have thoughts of causing physical harm, but understands these as intrusive, ego dystonic thoughts that are attributable to OCD. She continues to successfully use distraction techniques and is able to allow the thoughts to enter her head without becoming anxious or afraid that she is actually going to act on the thoughts. -Tolerating fluoxetine 60 mg daily. (2) Anxiety: 07/05 - Anxiety Disorder, NOS: Differential includes generalized anxiety disorder, panic disorder, obsessive compulsive disorder, and other anxiety disorder. Pt has intrusive thoughts/obsessions consistent with OCD, but does not report any criteria consistent with compulsions - Only recently re-started on fluoxetine, taking 40mg. Given an additional 20mg dose this morning, and will titrate to 60mg daily starting tomorrow morning - Highly suggesting family meeting to discuss intrusive thoughts, as only just disclosed to parents 07/06 - Continue fluoxetine at 60mg; consider if further titration is necessary to target intrusive, anxious thoughts - Family meeting with parents scheduled for this afternoon 07/07 -The patient seems to have generalized anxiety in addition to anxiety associated with obsessive, alien thoughts. She tells us that she is learning improved coping strategies that are helping her to manage anxiety which, in turn, helps manage the intrusive, ego dystonic thoughts that she has. (3) Hypothyroidism: 07/05 - Continue home dosage of levothyroxine (4) Polycystic ovarian syndrome: 07/05 - Home OCP was brought in with patient, order completed for patient to take as prescribed Risk Factors Assessment Male: No : Yes Do You Have Access To A Gun?: No Health Problems: Yes Mental Health Diagnoses: Yes Substance Use Disorders: No Previous Attempt: No Family History of Suicide: Yes Previous Psychiatric Hospitalization: No Hopelessness: No Smoker: No Protective Factors Assessment Hoahaoism Beliefs: No : No Responsible for Young Children: No Employed: Yes Stable Relationships: No Supportive Family: Yes Interval History Identifying Information GINO SANCHEZ is a 17-year-old F who currently lives in [place] with her parents and younger sister. Pt has a reported history of anxiety and depression, and was admitted on 07/04/18 14:45 on a 201 voluntary commitment for thoughts of harming herself and her family, with specific thoughts to overdose, or stab or strangle herself. Information is ED documentation and from the patient herself, and is considered to be reliable. Chief Complaint "I was having obsessive thoughts of harming myself and other people.". Review of Systems Sleep Information Total Hours of Sleep: 8.25 Sleep Comments: patient slept in the quiet room per her request, due to roommate snoring. Meal Information Percent Meal Consumed - Breakfast: 60 Percent Meal Consumed - Lunch: 90 Percent Meal Consumed - Dinner: 100 Subjective Subjective Patient was seen & assessed and interval progress reviewed with Treatment Team. I met individually with the patient in order to assess her current mental status, evaluate her response to treatment, coordinate any necessary changes in the patient's treatment regimen with the patient, and address issues and concerns that might arise. Today, the patient tells me that hospitalization has been helpful to her and that she has had an opportunity to learn about the obses sive intrusive thoughts and obsessive-compulsive disorder. She smiles when she says, "I guess I thought I was going to turn into the next Todd Yao and become a serial killer"because she was experiencing intrusive, alien, ego dystonic thoughts of causing serious physical harm to various loved ones as well as to herself. She says that she sought hospitalization as a way of moving herself from the home because she was afraid, at the time, that she might somehow lose control, possibly by sleepwalking or going into a "fugue" state, and actually end up acting on the thoughts. She says that these thoughts may have started back when she was still in high school and did a paper on serial killers. She has had these intrusive thoughts for nearly 2 years, but became alarmed because, recently, the thoughts became more frequently and seemed more intense. The patient reports that she tends to noted an increase in the intrusive ego- dystonic thoughts of harm while under stress, and she reports that, in the hospital, she is learning better coping strategies for managing stressa circumstance that she believes is helping her to dismiss the thoughts of harm. Also, she has taken the opportunity to educate herself further about obsessive- compulsive disorders and, specifically, about intrusive harm thoughts. She now understands that this is a fairly common problem and she tells me that she is now much relieved to know that she is unlikely to ever act on the thoughts. She states, "at this point, I am not really worried about acting on the thoughts. When the thoughts come in to my mind, I can just noticed them, not worry about them, and eventually they go away." Physical Exam Psychiatric Orientation: oriented x 3 Apperance: appropriately dressed and appropriately groomed Eye Contact: + fair eye contact Motor Behavior: steady gait and station and no abnormal motor movements Speech: normal rate/rhythm/volume of speech The patient does smile and chuckle appropriately several times during the interview. "Better. Thought Process: goal directed thought process, linear/logical thought process and clear/coherent thought process Thought Content: + obsessions The patient reports that she has intrusive suicidal thoughts, but has no suicidal plan or intent and tells us that her thoughts in this regard are no longer particularly troubling to her and that she has learned about the nature of intrusive obsessive thoughts and now does not worry about acting upon them. The patient reports that she has intrusive homicidal thoughts, but has no no homicidal plan or intent. These thoughts are highly ego-dystonic. She tells us that her thoughts in this regard are no longer particularly troubling to her and that she has learned about the nature of intrusive obsessive thoughts and now does not worry about acting upon them. Hallucinations: no auditory hallucinations Cognition: recent memory grossly intact, remote memory grossly intact and attention grossly intact Estimated Intelligence: + above average estimated intelligence Insight: good insight Judgement: good judgement Vital Signs (Past 24 Hours) Last Vital Signs Temp 36.6 C 07/07/18 07:01 Pulse 97 H 07/07/18 07:02 Resp 16 07/07/18 07:01 BP 125/85 07/07/18 07:02 Pulse Ox 95 07/04/18 13:30 Results & Data Current Inpatient Medications Current Inpatient Medications: Current Inpatient Medications Acetaminophen (Tylenol) 650 mg PO Q4H PRN PRN Reason: Headache or Minor Fever Stop: 08/03/18 14:44 Last Admin: 07/05/18 12:48 Dose: 650 mg Documented by: Al Hydrox/Mg Hydrox/Simethicone (Maalox) 30 ml PO Q4H PRN PRN Reason: GI Upset Stop: 08/03/18 14:44 Bismuth Subsalicylate (Kaopectate) 15 ml PO PRN PRN PRN Reason: Loose Stool Stop: 08/03/18 14:44 Fluoxetine HCl (Prozac) 60 mg PO DAILY YING Stop: 08/05/18 08:59 Last Admin: 07/07/18 08:44 Dose: 60 mg Documented by: Hydroxyzine HCl (Vistaril) 25 mg PO Q4H PRN PRN Reason: Anxiety Stop: 08/03/18 14:44 Hydroxyzine HCl (Vistaril) 50 mg PO HSZ PRN PRN Reason: Insomnia Stop: 08/03/18 14:44 Levothyroxine Sodium (Synthroid) 88 mcg PO DAILYBB YING Stop: 08/04/18 07:59 Last Admin: 07/07/18 08:03 Dose: 88 mcg Documented by: Magnesium Hydroxide (Milk Of Magnesia) 30 ml PO DAILY PRN PRN Reason: Heartburn Stop: 08/03/18 14:44 Miscellaneous (Patient's Own Oral Contraceptive) 1 ea PO DAILY YING Stop: 08/04/18 08:59 Last Admin: 07/07/18 08:44 Dose: 1 ea Documented by: Sodium Chloride ([place] Nasal) 1 - 2 sprays NA PRN PRN PRN Reason: Nasal Dryness/Congestion Stop: 08/03/18 14:44 Post Discharge Appointments Primary Care Physician Name Of Family Doctor: DUDLEY Awad Primary Care Time of Appointment with PCP: Follow up as needed Provider Appointment Comment: [address] [facility] [place] [address] Psychiatrist Name of Psychiatrist: Conrado Olivo PA-C Psychiatrist's Date of Appointment with Psychiatrist: 07/14/18 Time of Appointment with Psychiatrist: 9:00 a.m. Psychiatric Appointment Comment: [address] [facility] [place] [facility] [place] [address] Therapist Name of Therapist: [facility] - Shanika Villegas Therapist's Date of Therapist Appointment: 07/13/18 Time of Therapist Appointment: 5:00 p.m. Therapy Appointment Comment: [address] [facility] [place] [address] Nurse General Duty Name of Nurse General Duty: Isn't sure if she has one or not Contact Information Discharge Discharge Address: [address] [place] [address], [place] [address] CPT Code CPT Code 59460
[2018-07-08 06:56] VITALS: TEMP 98.1
[2018-07-08] MEDS: PATIENT'S OWN ORAL CONTRACEPTIVE PO SCH (09:06)
[2018-07-08] MEDS: LEVOTHYROXINE SODIUM 88 MCG TABLET PO SCH (09:06)
[2018-07-08] MEDS: FLUOXETINE HCL 20 MG CAP PO SCH (09:06)
--- NOTE | 2018-07-08 12:30 | Psychiatric Progress Note ---
Date of Service July 08, 2018 Impression / Recommendations Impression While patient demonstrating improvement with apparent resolution of suicidal ideation, she remains anxious and is at risk for decompensation if discharged prematurely as proximity to family was a recent stressor regarding ego-dystonic aggressive thoughts. As she is benefiting from psychotherapy on the inpatient unit with improving insight and coping strategies, I believe she would benefit from 1 more day of treatment before we consider discharge to home. (1) Suicidal ideation: 07/05 - Intrusive thoughts/anxiety is distressing to the point of patient considering suicide to make the thoughts stop - though is not an active desire of hers otherwise - Admitted to a locked inpatient behavioral health unit, on q15 minute safety checks - Encourage medication initiation/adjustments as indicated - Encourage participation in group and recreational therapies - Gather collateral information from outpatient providers - Suggest family meeting to involve outpatient supports in safety planning - Arrange appropriate aftercare 07/06 - Reports ongoing thoughts to harm self physically, avoiding with distraction techniques 07/07 -The patient reports that she is continuing to have thoughts of causing physical harm, but understands these as intrusive, ego dystonic thoughts that are attributable to OCD. She continues to successfully use distraction techniques and is able to allow the thoughts to enter her head without becoming anxious or afraid that she is actually going to act on the thoughts. -Tolerating fluoxetine 60 mg daily. 07/08 - denies SI today (2) Anxiety: 07/05 - Anxiety Disorder, NOS: Differential includes generalized anxiety disorder, panic disorder, obsessive compulsive disorder, and other anxiety disorder. Pt has intrusive thoughts/obsessions consistent with OCD, but does not report any criteria consistent with compulsions - Only recently re-started on fluoxetine, taking 40mg. Given an additional 20mg dose this morning, and will titrate to 60mg daily starting tomorrow morning - Highly suggesting family meeting to discuss intrusive thoughts, as only just disclosed to parents 07/06 - Continue fluoxetine at 60mg; consider if further titration is necessary to target intrusive, anxious thoughts - Family meeting with parents scheduled for this afternoon 07/07 -The patient seems to have generalized anxiety in addition to anxiety associated with obsessive, alien thoughts. She tells us that she is learning improved coping strategies that are helping her to manage anxiety which, in turn, helps manage the intrusive, ego dystonic thoughts that she has. 07/08 - anxiety remains high - reviewed intellectualization and distraction for coping - tolerating increased prozac - severe anxiety/ocd sx increase risk for self harm and benefitting from continued therapeutic programming (3) Hypothyroidism: 07/05 - Continue home dosage of levothyroxine (4) Polycystic ovarian syndrome: 07/05 - Home OCP was brought in with patient, order completed for patient to take as prescribed Risk Factors Assessment Male: No : Yes Do You Have Access To A Gun?: No Health Problems: Yes Mental Health Diagnoses: Yes Substance Use Disorders: No Previous Attempt: No Family History of Suicide: Yes Previous Psychiatric Hospitalization: No Hopelessness: No Smoker: No Protective Factors Assessment Christianity Beliefs: No : No Responsible for Young Children: No Employed: Yes Stable Relationships: No Supportive Family: Yes Interval History Identifying Information GINO SANCHEZ is a 17-year-old F who currently lives in [place] with her parents and younger sister. Pt has a reported history of anxiety and depression, and was admitted on 07/04/18 14:45 on a 201 voluntary commitment for thoughts of harming herself and her family, with specific thoughts to overdose, or stab or strangle herself. Information is ED documentation and from the patient herself, and is considered to be reliable. Chief Complaint "I'm getting excited to leave soon". Review of Systems Sleep Information Total Hours of Sleep: 7.5 Sleep Comments: Patient slept in the open quiet room per her request due to room mate snoring. Meal Information Percent Meal Consumed - Breakfast: 90 Percent Meal Consumed - Lunch: 80 Percent Meal Consumed - Dinner: 90 Subjective Subjective Patient was seen & assessed and interval progress reviewed with Treatment Team. Reviewed admission history. Patient admitted on 201 with OCD and associated ego dystonic thoughts of harm to others accompanied by suicidal ideation on admission. Participating well in unit programming. Has been sleeping in the quiet room with door open at her preference. Has expressed thoughts to self injure on the unit. On interview she reports improving insight that her intrusive thoughts are a symptom of her OCD however, in describing these, she appears anxious and reports that she was sincerely fearful at home that she would wake up and discover that she had hurt her family. She describes anxiety being near scissors and knives at home. She expresses hopefulness that things will continue to improve however she acknowledges some anxiety about return to home. She reports suicidal ideation has been resolved for approximately 2 days. She denies side effects or complaints associated with her antidepressant titration. Physical Exam Psychiatric Orientation: cooperative Apperance: appropriately dressed and appropriately groomed Eye Contact: + fair eye contact Motor Behavior: steady gait and station and no abnormal motor movements Speech: + abnormal rate/rhythm/volume of speech (soft) Affect: + anxious affect "a little better" Thought Process: goal directed thought process Thought Content: + preoccupation (intrusive thoughts less distressing but unresolved) Suicidal Thoughts: denies suicidal thoughts Homicidal Thoughts: denies homicidal intent Hallucinations: no auditory hallucinations Cognition: recent memory grossly intact Estimated Intelligence: average estimated intelligence Insight: + fair insight Judgement: + fair judgement Vital Signs (Past 24 Hours) Last Vital Signs Temp 36.7 C 07/08/18 06:55 Pulse 107 H 07/08/18 06:55 Resp 16 07/08/18 06:55 BP 119/80 07/08/18 06:55 Pulse Ox 95 07/04/18 13:30 Results & Data Current Inpatient Medications Current Inpatient Medications: Current Inpatient Medications Acetaminophen (Tylenol) 650 mg PO Q4H PRN PRN Reason: Headache or Minor Fever Stop: 08/03/18 14:44 Last Admin: 07/05/18 12:48 Dose: 650 mg Documented by: Al Hydrox/Mg Hydrox/Simethicone (Maalox) 30 ml PO Q4H PRN PRN Reason: GI Upset Stop: 08/03/18 14:44 Bismuth Subsalicylate (Kaopectate) 15 ml PO PRN PRN PRN Reason: Loose Stool Stop: 08/03/18 14:44 Fluoxetine HCl (Prozac) 60 mg PO DAILY YING Stop: 08/05/18 08:59 Last Admin: 07/08/18 09:06 Dose: 60 mg Documented by: Hydroxyzine HCl (Vistaril) 25 mg PO Q4H PRN PRN Reason: Anxiety Stop: 08/03/18 14:44 Hydroxyzine HCl (Vistaril) 50 mg PO HSZ PRN PRN Reason: Insomnia Stop: 08/03/18 14:44 Levothyroxine Sodium (Synthroid) 88 mcg PO DAILYBB YING Stop: 08/04/18 07:59 Last Admin: 07/08/18 09:06 Dose: 88 mcg Documented by: Magnesium Hydroxide (Milk Of Magnesia) 30 ml PO DAILY PRN PRN Reason: Heartburn Stop: 08/03/18 14:44 Miscellaneous (Patient's Own Oral Contraceptive) 1 ea PO DAILY YING Stop: 08/04/18 08:59 Last Admin: 07/08/18 09:06 Dose: 1 ea Documented by: Sodium Chloride ([place] Nasal) 1 - 2 sprays NA PRN PRN PRN Reason: Nasal Dryness/Congestion Stop: 08/03/18 14:44 Post Discharge Appointments Primary Care Physician Name Of Family Doctor: [facility] Time of Appointment with PCP: Follow up as needed Provider Appointment Comment: [id number] [place] [address] Psychiatrist Name of Psychiatrist: Conrado Olivo PA-C Psychiatrist's Date of Appointment with Psychiatrist: 07/14/18 Time of Appointment with Psychiatrist: 9:00 a.m. Psychiatric Appointment Comment: [id number] [place] [address] Therapist Name of Therapist: [facility] - Shanika Villegas Therapist's Date of Therapist Appointment: 07/13/18 Time of Therapist Appointment: 5:00 p.m. Therapy Appointment Comment: [address] [place] [address] Supervisor Respiratory Name of Supervisor Respiratory: Isn't sure if she has one or not Contact Information Discharge Discharge Address: [address] [place] [address], [place] [address] CPT Code CPT Code 26324
[2018-07-09] MEDS: LEVOTHYROXINE SODIUM 88 MCG TABLET PO SCH (08:40)
[2018-07-09] MEDS: FLUOXETINE HCL 20 MG CAP PO SCH (08:40)
[2018-07-09] MEDS: PATIENT'S OWN ORAL CONTRACEPTIVE PO SCH (08:41)
--- NOTE | 2018-07-09 12:36 | Psychiatric Progress Note ---
Date of Service July 09, 2018 Impression / Recommendations Impression Anxiety continues to improve. Ego-dystonic intrusive thoughts unresolved but less distressing and coping more effectively. She will likely be ready for discharge tomorrow to follow-up as an outpatient. She has outpatient psychiatric and therapy follow-up appointments for later this week. (1) Suicidal ideation: 07/05 - Intrusive thoughts/anxiety is distressing to the point of patient considering suicide to make the thoughts stop - though is not an active desire of hers otherwise - Admitted to a locked inpatient behavioral health unit, on q15 minute safety checks - Encourage medication initiation/adjustments as indicated - Encourage participation in group and recreational therapies - Gather collateral information from outpatient providers - Suggest family meeting to involve outpatient supports in safety planning - Arrange appropriate aftercare 07/06 - Reports ongoing thoughts to harm self physically, avoiding with distraction techniques 07/07 -The patient reports that she is continuing to have thoughts of causing physical harm, but understands these as intrusive, ego dystonic thoughts that are attributable to OCD. She continues to successfully use distraction techniques and is able to allow the thoughts to enter her head without becoming anxious or afraid that she is actually going to act on the thoughts. -Tolerating fluoxetine 60 mg daily. 07/08 - denies SI today 07/09 -Suicidal ideation remains resolved (2) Anxiety: 07/05 - Anxiety Disorder, NOS: Differential includes generalized anxiety disorder, panic disorder, obsessive compulsive disorder, and other anxiety disorder. Pt has intrusive thoughts/obsessions consistent with OCD, but does not report any criteria consistent with compulsions - Only recently re-started on fluoxetine, taking 40mg. Given an additional 20mg dose this morning, and will titrate to 60mg daily starting tomorrow morning - Highly suggesting family meeting to discuss intrusive thoughts, as only just disclosed to parents 07/06 - Continue fluoxetine at 60mg; consider if further titration is necessary to target intrusive, anxious thoughts - Family meeting with parents scheduled for this afternoon 07/07 -The patient seems to have generalized anxiety in addition to anxiety associated with obsessive, alien thoughts. She tells us that she is learning improved coping strategies that are helping her to manage anxiety which, in turn, helps manage the intrusive, ego dystonic thoughts that she has. 07/08 - anxiety remains high - reviewed intellectualization and distraction for coping - tolerating increased prozac - severe anxiety/ocd sx increase risk for self harm and benefitting from continued therapeutic programming 07/09 -Continue Prozac unchanged. Tolerating well -She has responded to psychotherapeutic interventions in the hospital. Insight significantly improved. -Reviewed likelihood of increased anxiety initially post discharge. She is able to contract for safety indicating that she will disclose any safety concerns (3) Hypothyroidism: 07/05 - Continue home dosage of levothyroxine (4) Polycystic ovarian syndrome: 07/05 - Home OCP was brought in with patient, order completed for patient to take as prescribed Risk Factors Assessment Male: No : Yes Do You Have Access To A Gun?: No Health Problems: Yes Mental Health Diagnoses: Yes Substance Use Disorders: No Previous Attempt: No Family History of Suicide: Yes Previous Psychiatric Hospitalization: No Hopelessness: No Smoker: No Protective Factors Assessment Hinduism Beliefs: No : No Responsible for Young Children: No Employed: Yes Stable Relationships: No Supportive Family: Yes Interval History Identifying Information GINO SANCHEZ is a 17-year-old F who currently lives in [place] with her parents and younger sister. Pt has a reported history of anxiety and depression, and was admitted on 07/04/18 14:45 on a 201 voluntary commitment for thoughts of harming herself and her family, with specific thoughts to overdose, or stab or strangle herself. Information is ED documentation and from the patient herself, and is considered to be reliable. Chief Complaint "I am not as scared as i was.". Review of Systems Sleep Information Total Hours of Sleep: 8.25 Sleep Comments: Patient slept in the open quiet room per her request due to room mate snoring. Meal Information Percent Meal Consumed - Breakfast: 100 Percent Meal Consumed - Lunch: 100 Percent Meal Consumed - Dinner: 100 Subjective Subjective Patient was seen & assessed and interval progress reviewed with Treatment Team. Per nursing staff patient continues to look better on the unit. Showered. Attending groups. Visited by mother which went well. She describes improvement in both mood and anxiety since yesterday. She describes feeling less scared about going to sleep. "I know I am not going to do something that I do not want to do now." She continues to reframe intrusive thoughts effectively as symptom of OCD which has been helpful for her. She acknowledges that intrusive thoughts are not fully resolved but much less distressing. She denies active suicidal thinking and feeling more ready for discharge. She acknowledges proximity to family as a potential stressor as well as loss of immediate supports available on hospital. Additionally she was able to identify hearing that the intrusive thoughts would be "scary" to her family if she talks about them however she identifies her parents and sister as primary supports. She states she would like to make more friends outside of her family. Physical Exam Psychiatric Orientation: alert, oriented x 3 and cooperative Apperance: appropriately dressed and appropriately groomed Eye Contact: good eye contact Motor Behavior: steady gait and station and no abnormal motor movements Speech: normal rate/rhythm/volume of speech Affect: + anxious affect (Mildly so); no depressed affect and no tearful affect Mood: + depressed mood (Rates mood 7 out of 10. "Not 100% but it is getting better.") and + anxious mood (Rates) Thought Process: goal directed thought process Thought Content: reality based without delusions Suicidal Thoughts: denies suicidal thoughts, denies suicidal plan and denies suicidal intent Homicidal Thoughts: denies homicidal thoughts, denies homicidal plan and denies homicidal intent Hallucinations: no auditory hallucinations and no visual hallucinations Cognition: recent memory grossly intact, remote memory grossly intact and attention grossly intact Estimated Intelligence: average estimated intelligence Insight: + fair insight Judgement: + fair judgement Vital Signs (Past 24 Hours) Last Vital Signs Temp 36.7 C 07/09/18 06:00 Pulse 99 H 07/09/18 06:32 Resp 16 07/09/18 06:00 BP 127/85 07/09/18 06:32 Pulse Ox 95 07/04/18 13:30 Results & Data Current Inpatient Medications Current Inpatient Medications: Current Inpatient Medications Acetaminophen (Tylenol) 650 mg PO Q4H PRN PRN Reason: Headache or Minor Fever Stop: 08/03/18 14:44 Last Admin: 07/05/18 12:48 Dose: 650 mg Documented by: Al Hydrox/Mg Hydrox/Simethicone (Maalox) 30 ml PO Q4H PRN PRN Reason: GI Upset Stop: 08/03/18 14:44 Bismuth Subsalicylate (Kaopectate) 15 ml PO PRN PRN PRN Reason: Loose Stool Stop: 08/03/18 14:44 Fluoxetine HCl (Prozac) 60 mg PO DAILY YING Stop: 08/05/18 08:59 Last Admin: 07/09/18 08:40 Dose: 60 mg Documented by: Hydroxyzine HCl (Vistaril) 25 mg PO Q4H PRN PRN Reason: Anxiety Stop: 08/03/18 14:44 Hydroxyzine HCl (Vistaril) 50 mg PO HSZ PRN PRN Reason: Insomnia Stop: 08/03/18 14:44 Levothyroxine Sodium (Synthroid) 88 mcg PO DAILYBB YING Stop: 08/04/18 07:59 Last Admin: 07/09/18 08:40 Dose: 88 mcg Documented by: Magnesium Hydroxide (Milk Of Magnesia) 30 ml PO DAILY PRN PRN Reason: Heartburn Stop: 08/03/18 14:44 Miscellaneous (Patient's Own Oral Contraceptive) 1 ea PO DAILY YING Stop: 08/04/18 08:59 Last Admin: 07/09/18 08:41 Dose: 1 ea Documented by: Sodium Chloride ([place] Nasal) 1 - 2 sprays NA PRN PRN PRN Reason: Nasal Dryness/Congestion Stop: 08/03/18 14:44 Post Discharge Appointments Primary Care Physician Name Of Family Doctor: DUDLEY [facility] Time of Appointment with PCP: Follow up as needed Provider Appointment Comment: [id number] [facility], [place] [address] Psychiatrist Name of Psychiatrist: Conrado Olivo PA-C Psychiatrist's Date of Appointment with Psychiatrist: 07/14/18 Time of Appointment with Psychiatrist: 9:00 a.m. Psychiatric Appointment Comment: [address] [facility] [address] Therapist Name of Therapist: [facility] - Shanika Villegas Therapist's Date of Therapist Appointment: 07/13/18 Time of Therapist Appointment: 5:00 p.m. Therapy Appointment Comment: [address] [place] [place] [address] Banjo Repairer Name of Banjo Repairer: Isn't sure if she has one or not Contact Information Discharge Discharge Address: [address] [place] [address], [place] [address] CPT Code CPT Code 20133
[2018-07-10] MEDS: LEVOTHYROXINE SODIUM 88 MCG TABLET PO SCH (08:27)
[2018-07-10] MEDS: PATIENT'S OWN ORAL CONTRACEPTIVE PO SCH (08:27)
[2018-07-10] MEDS: FLUOXETINE HCL 20 MG CAP PO SCH (08:27)
[2018-07-10 11:31] VITALS: BP 146/84; PULSE 94
--- NOTE | 2018-07-10 12:46 | Discharge Summary ---
Date of Service July 10, 2018 History of Present Illness Ann Marie Salcedo is a 17-year-old female who just completed her freshman year at [employer] [address]. Patient is admitted voluntarily for worsening thoughts to harm herself or her family. Patient was brought to the emergency room after she had texted National Suicide Hotline. She states "they must have pinged my phone or something." Patient states that after the series of text messages, police arrived at her house, then bringing her to the emergency room. Patient was ultimately admitted voluntarily for treatment. Patient states most significant recent stressor has been the of her 14-year-old dog. Patient reports that she requested her parents put the dog down while she was still at school, in order to be distracted with her academics. Patient shares with this provider that she had a very difficult time returning home at the end of the semester, knowing that her dog was not there. Otherwise, the patient states she is unsure if there are any other significant causes to her worsening mood and intrusive thoughts. Patient reports a history of anxiety and depression for which she has seen Kristin Kwon PA-C, admittedly irregularly due to her school schedule. Patient states she began receiving outpatient psychiatric treatment in November 2016 after she began to develop intrusive thoughts of needing to trip people at school as well as, "make moves on guys, that is not something I would normally do." Patient believes that these thoughts developed as a result of increased stress related to graduating from high school. Patient states that she was able to resist acting on these intrusive thoughts at that time. These thoughts have continued on and off for the past few years, eventually developing into thoughts to harm herself and her family. Patient states his thoughts have worsened significantly in the last 1-2 weeks, and she is worried that she may act on them. Patient states she does not have an active desire to follow through on the thoughts and end her life or cause harm to her family members. Patient reports thoughts of killing herself by overdosing on medications, strangling herself, or stabbing herself. She admits to thoughts of harming family members by stabbing them. Patient admits that these thoughts are distressing for her, to the point of avoiding the kitchen so she is not in contact with knives in the home. Patient states she does not have formal suicidal thoughts, but admits she had considered that ending her life may also put an end to her intrusive thoughts. Patient states this is not something she believes that she would act on and is not something she desires as, "I have plans. I want to travel to [place]. There is so much I want to do." Patient states that she began treatment for depression and anxiety in 2017 and is periodically been on antidepressant medications since that time. She recalls a trial of sertraline which had recently been discontinued. Patient was just recently prescribed fluoxetine, and had just titrated to a dose of 40 mg within the last week or so. Patient does not feel that she has had sufficient time to observe any benefit from the medication thus far. Patient reports depressive symptoms of decreased energy, anhedonia with related to hobbies are coloring of photography specifically, she admits to napping during the day due to restless sleep. The patient does admit to a weight loss of 6 pounds within the last week, but believes this also may be related to her recent URI. Patient reports nonspecific anxiety and racing thoughts at times. She believes that she has experienced anxiety attacks, characterizing these moments by chest tightness, diaphoresis, tendency to bite her cheek or lips, headache, nausea, and occasional shortness of breath. Patient states that anxiety during these times is heightened by the fact that she believes she is having a heart attack. Patient denies any history of other intrusive thoughts earlier in life, denies any behavioral compulsions related to these thoughts. Pt denies SIB, A/V hallucinations, paranoia, parisa/hypomania, other symptoms more suggestive of a bipolar presentation, PTSD, eating disorder, and other specific psychiatric symptoms. Physical Exam Psychiatric Orientation: oriented x 3 Apperance: appropriately dressed Eye Contact: + fair eye contact Motor Behavior: steady gait and station and no abnormal motor movements Speech: normal rate/rhythm/volume of speech Affect: euthymic affect Smiles and laughs appropriately during the interview Mood: + anxious mood Reports, overall, mood is "7/10." Thought Process: goal directed thought process, linear/logical thought process and clear/coherent thought process Thought Content: + obsessions and reality based without delusions Suicidal Thoughts: denies suicidal thoughts "My thoughts have been quiet!" Homicidal Thoughts: denies homicidal thoughts Hallucinations: no auditory hallucinations Cognition: recent memory grossly intact, remote memory grossly intact, attention grossly intact and language grossly intact Estimated Intelligence: + above average estimated intelligence Insight: good insight Judgement: good judgement Vital Signs (Past 24 Hours) Last Vital Signs Temp 36.7 C 07/10/18 11:30 Pulse 94 H 07/10/18 11:30 Resp 16 07/10/18 11:30 BP 146/84 H 07/10/18 11:30 Pulse Ox 95 07/10/18 11:30 Principal Diagnosis Obsessive Compulsive Disorder Psychiatric Data During the course of hospitalization the patient was offered various modalities of psychiatric treatment and education. These included individual, group, activity, milieu, and chemotherapy. She was continued on Prozac 40 mg daily, and the dose of this medication was increased from 40 mg a day to 60 mg a day. The patient indicates that she tolerated this change well. We reviewed the material risks and anticipated benefits of Prozac with the patient, and she reports that she is not having any of the side effects described. We focused on helping the patient understand the nature of ego-dystonic intrusive thoughts, as part of obsessive-compulsive disorder. She laughingly tells us that her mother had teased her about being "OCD" because of checking behaviors and a tendency to be very exacting when making her bed, but the patient had not realized that the intrusive thoughts of harming other people and harming herselfwhich are comp letely alien to her, are related to obsessive-compulsive disorder. She was taught a series of distracting techniques that she has learned to use whenever and intrusive ego-dystonic thought enters her awareness. She was encouraged to think of the thoughts as being analogous to a "wasp that has flown into the room; the more you swat added and try to get a to leave the more upset, threatening, and angry it becomes." She was advised of the thing to do is to simply acknowledge the wasp, distract herself with other activities, noted its presence, and wait for it to go away without reacting to it. The patient reiterated that she never had any suicidal or homicidal intent and that her fear was simply that somehow these intrusive thoughts would progress to the degree that she might inadvertently, and without intention, act on them. She was given reassurances in this regard and reports that she feels that she now has an adequate toolkit to manage them as they occur. We believe the patient has reached maximum benefit from it from inpatient psychiatric treatment. She is prepared to safely return to the community and is expected to be able to tolerate the stress of community reentry at this point. She will continue treatment on an outpatient basis. Day of Discharge Assessment On the day of discharge, the patient was pleasant, cooperative, appropriately dressed, and appropriately groomed. She reports that her mood is "good" and describes it as being "7 out of 10." She also acknowledges that she is somewhat nervous about returning home because she recognizes that she may not have the full spectrum of support available to her in the community, as compared to her in the hospital, but she does note that she feels fully prepared to make the transition back home. The patient's affect is bright, and she smiles and laughs appropriately during the discharge interview today. The patient's speech is spontaneous, fluid, and delivered at a normal rate and volume. There is no evidence of any disturbance in the patient's thought processes. Her associations are tight and logical. Patient's thought content is devoid of any psychotic features. She reports that she has never experienced any perceptual disturbances. As above, the patient has consistently denied any suicidal intent as well as any homicidal intent, but was greatly troubled by persistent intrusive, alien or "ego dystonic" thoughts of violence being directed towards loved ones or herself that proved to be purely a function of her obsessive- compulsive disorder and not related to a significant risk of action. She reports that she feels that she has acquired a series of useful tools, both to manage the obsessive thoughts and, also, to manage anxious thoughts when they occur. She notes that, when under stress, her obsessive thoughts are more likely to worsen, and she notes that having learned methods for managing anxiety also helps reduce the frequency of intrusive alien thoughts. She plans to continue her treatment on an outpatient basis. Her judgment and insight are both good. Transition of Care Transition Of Care Record: was reviewed with the patient Advance Directives Advance Directives Information Provided: Yes Advance Directives: No Mental Health Advance Directive: Yes Advance Directives on File: Yes Living Will: No Power of Financial Secretary: No Advance Directives Reason:: Declines as Mental Health Visit. Risk Factors Assessment Male: No : Yes Do You Have Access To A Gun?: No Health Problems: Yes Mental Health Diagnoses: Yes Substance Use Disorders: No Previous Attempt: No Family History of Suicide: Yes Previous Psychiatric Hospitalization: No Hopelessness: No Smoker: No Protective Factors Assessment Jew Beliefs: No : No Responsible for Young Children: No Employed: Yes Stable Relationships: No Supportive Family: Yes Tobacco Cessation at Discharge Tobacco Cessation Medication Prescribed at Discharge: Not Applicable/Non-Smoker Total Time Total Time Spent: Greater Than 30 Minutes Total Time Includes: Examination of the patient, Discharge Planning, Medication Reconciliation and Communication with other providers Discharge Data Lab Results 07/04/18 07/04/18 07/04/18 03:37 03:37 03:37 WBC RBC Hgb Hct MCV MCH MCHC RDW Std Deviation RDW Coeff of Allie Plt Count MPV Immature Gran % (Auto) Neut % (Auto) Lymph % (Auto) [place] % (Auto) Eos % (Auto) Baso % (Auto) Immature Gran # (Auto) Neut # (Auto) Lymph # (Auto) [place] # (Auto) Eos # (Auto) Baso # (Auto) Sodium Potassium Chloride Carbon Dioxide Anion Gap BUN Creatinine Est Cr Clr Drug Dosing Est GFR ( Amer) Est GFR (Non-Af Amer) BUN/Creatinine Ratio Glucose Calcium Total Bilirubin AST ALT Alkaline Phosphatase Total Protein Albumin Globulin Albumin/Globulin Ratio TSH Free T4 Urine Color Yellow Urine Appearance Clear Urine pH 6.5 Ur Specific [place] 1.021 Urine Protein Negative Urine Glucose (UA) Negative Urine Ketones Negative Urine Blood Negative Urine Nitrite Negative Urine Bilirubin Negative Urine Urobilinogen Negative Ur Leukocyte Esterase 1+ H Urine WBC (Auto) 10-30 H Urine RBC (Auto) 0-4 U Hyaline Cast (Auto) 1-5 U Epithel Cells (Auto) >30 H Urine Bacteria (Auto) Negative Urine Test Negative Salicylates Urine Opiates Screen Neg Ur Methadone, Qual Neg Acetaminophen Urine Barbiturates Neg Ur Phencyclidine (PCP) Neg U Amphetamin/Meth Scrn Neg MDMA (Ecstasy) Screen Neg U Benzodiazepines Scrn Neg Ur Cocaine Metabolite Neg U Marijuana (THC) Screen Neg Ethyl Alcohol mg/dL 07/04/18 07/04/18 07/04/18 03:51 03:51 03:51 WBC 9.93 RBC 4.65 Hgb 14.0 Hct 41.6 MCV 89.5 MCH 30.1 MCHC 33.7 RDW Std Deviation 40.4 RDW Coeff of Allie 12.5 Plt Count 233 MPV 11.1 H Immature Gran % (Auto) 0.2 Neut % (Auto) 61.6 Lymph % (Auto) 28.9 [place] % (Auto) 7.7 Eos % (Auto) 1.5 Baso % (Auto) 0.1 Immature Gran # (Auto) 0.02 Neut # (Auto) 6.12 Lymph # (Auto) 2.87 [place] # (Auto) 0.76 H Eos # (Auto) 0.15 Baso # (Auto) 0.01 Sodium 137 Potassium 3.9 Chloride 103 Carbon Dioxide 28 Anion Gap 6.0 BUN 13 Creatinine 0.73 Est Cr Clr Drug Dosing 129.0 Est GFR ( Amer) 138.4 Est GFR (Non-Af Amer) 119.4 BUN/Creatinine Ratio 17.1 Glucose 100 H Calcium 9.4 Total Bilirubin 0.3 AST 9 L ALT 17 Alkaline Phosphatase 92 Total Protein 7.8 Albumin 3.3 L Globulin 4.5 H Albumin/Globulin Ratio 0.7 L TSH 3.770 Free T4 1.19 Urine Color Urine Appearance Urine pH Ur Specific [place] Urine Protein Urine Glucose (UA) Urine Ketones Urine Blood Urine Nitrite Urine Bilirubin Urine Urobilinogen Ur Leukocyte Esterase Urine WBC (Auto) Urine RBC (Auto) U Hyaline Cast (Auto) U Epithel Cells (Auto) Urine Bacteria (Auto) Urine Test Salicylates < 1.7 L Urine Opiates Screen Ur Methadone, Qual Acetaminophen < 2 L Urine Barbiturates Ur Phencyclidine (PCP) U Amphetamin/Meth Scrn MDMA (Ecstasy) Screen U Benzodiazepines Scrn Ur Cocaine Metabolite U Marijuana (THC) Screen Ethyl Alcohol mg/dL 07/04/18 03:51 WBC RBC Hgb Hct MCV MCH MCHC RDW Std Deviation RDW Coeff of Allie Plt Count MPV Immature Gran % (Auto) Neut % (Auto) Lymph % (Auto) [place] % (Auto) Eos % (Auto) Baso % (Auto) Immature Gran # (Auto) Neut # (Auto) Lymph # (Auto) [place] # (Auto) Eos # (Auto) Baso # (Auto) Sodium Potassium Chloride Carbon Dioxide Anion Gap BUN Creatinine Est Cr Clr Drug Dosing Est GFR ( Amer) Est GFR (Non-Af Amer) BUN/Creatinine Ratio Glucose Calcium Total Bilirubin AST ALT Alkaline Phosphatase Total Protein Albumin Globulin Albumin/Globulin Ratio TSH Free T4 Urine Color Urine Appearance Urine pH Ur Specific [place] Urine Protein Urine Glucose (UA) Urine Ketones Urine Blood Urine Nitrite Urine Bilirubin Urine Urobilinogen Ur Leukocyte Esterase Urine WBC (Auto) Urine RBC (Auto) U Hyaline Cast (Auto) U Epithel Cells (Auto) Urine Bacteria (Auto) Urine Test Salicylates Urine Opiates Screen Ur Methadone, Qual Acetaminophen Urine Barbiturates Ur Phencyclidine (PCP) U Amphetamin/Meth Scrn MDMA (Ecstasy) Screen U Benzodiazepines Scrn Ur Cocaine Metabolite U Marijuana (THC) Screen Ethyl Alcohol mg/dL < 3.0 Hospital Course (1) Suicidal ideation: 07/05 - Intrusive thoughts/anxiety is distressing to the point of patient cons idering suicide to make the thoughts stop - though is not an active desire of hers otherwise - Admitted to a locked inpatient behavioral health unit, on q15 minute safety checks - Encourage medication initiation/adjustments as indicated - Encourage participation in group and recreational therapies - Gather collateral information from outpatient providers - Suggest family meeting to involve outpatient supports in safety planning - Arrange appropriate aftercare 07/06 - Reports ongoing thoughts to harm self physically, avoiding with distraction techniques 07/07 -The patient reports that she is continuing to have thoughts of causing physical harm, but understands these as intrusive, ego dystonic thoughts that are attributable to OCD. She continues to successfully use distraction techn iques and is able to allow the thoughts to enter her head without becoming anxious or afraid that she is actually going to act on the thoughts. -Tolerating fluoxetine 60 mg daily. 07/08 - denies SI today 07/09 -Suicidal ideation remains resolved 07/10 -The patient continues to report no suicidal thoughts. The patient's suicidal thoughts present at admission were associated with intrusive alien thoughts that were not accompanied by any suicidal intent, but, instead, were part of her obsessive-compulsive disorder. (2) Anxiety: 07/05 - Anxiety Disorder, NOS: Differential includes generalized anxiety disorder, panic disorder, obsessive compulsive disorder, and other anxiety disorder. Pt has intrusive thoughts/obsessions consistent with OCD, but does not report any criteria consistent with compulsions - Only recently re-started on fluoxetine, taking 40mg. Given an additional 20mg dose this morning, and will titrate to 60mg daily starting tomorrow morning - Highly suggesting family meeting to discuss intrusive thoughts, as only just disclosed to parents 07/06 - Continue fluoxetine at 60mg; consider if further titration is necessary to target intrusive, anxious thoughts - Family meeting with parents scheduled for this afternoon 07/07 -The patient seems to have generalized anxiety in addition to anxiety associated with obsessive, alien thoughts. She tells us that she is learning improved coping strategies that are helping her to manage anxiety which, in turn, helps manage the intrusive, ego dystonic thoughts that she has. 07/08 - anxiety remains high - reviewed intellectualization and distraction for coping - tolerating increased prozac - severe anxiety/ocd sx increase risk for self harm and benefitting from continued therapeutic programming 07/09 -Continue Prozac unchanged. Tolerating well -She has responded to psychotherapeutic interventions in the hospital. Insight significantly improved. -Reviewed likelihood of increased anxiety initially post discharge. She is able to contract for safety indicating that she will disclose any safety concerns 07/10 -Continue Prozac 60 mg daily. The patient continues to report that she is tolerating it well. -Some anxiety symptoms persist, but the patient reports that she does feel prepared to handle the stress associated with returning to the community, and notes that she feels that she has acquired sufficient coping skills to allow her to manage successfully after discharge. (3) Hypothyroidism: 07/05 - Continue home dosage of levothyroxine (4) Polycystic ovarian syndrome: 07/05 - Home OCP was brought in with patient, order completed for patient to take as prescribed Post Discharge Appointments Primary Care Physician Name Of Family Doctor: DUDLEY Awad [facility] Time of Appointment with PCP: Follow up as needed Provider Appointment Comment: [address] [place] [address] Primary Care Release of Information: Obtained, Reviewed and Signed Psychiatrist Name of Psychiatrist: Conrado Olivo PA-C Psychiatrist's Date of Appointment with Psychiatrist: 07/14/18 Time of Appointment with Psychiatrist: 9:00 a.m. Psychiatric Appointment Comment: [address] [place] [address] Psychiatrist Release of Information: Obtained, Reviewed and Signed Therapist Name of Therapist: [facility] Shanika Villegas Therapist's Date of Therapist Appointment: 07/13/18 Time of Therapist Appointment: 5:00 p.m. Therapy Appointment Comment: [address] [place] [address] Therapist Release of Information: Obtained, Reviewed and Signed Agricultural Services Director Name of Agricultural Services Director: . Smoking Cessation Counseling Tobacco Cessation Medication Prescribed at Discharge: Not Applicable/Non-Smoker Contact Information Discharge Discharge Address: [address] [place] [id number] Discharge Plan Discharge Items Patient Disposition: Home - Self-Care Reason For Visit: MAJOR DEPRESSIVE DISORDER, SI Discharge Diagnosis: Obsessive Compulsive Disorder Discharge Goals: Improve disease control and Learn about illness Activity: Resume your previous activity Non-emergency contact: Primary Care Provider, Psychiatrist and Therapist Call non-emergency contact if: you have any medication questions and your symptoms worsen Follow-up/Referrals: Jacinta Awad MD [Primary Care Provider] - Diet: Regular Addtl Provider Instructions: Remember "the bee in the room" story for managing intrusive, alien, "ego- dystonic" thoughts Prescriptions: New fluoxetine 60 mg tablet 60 mg PO QAM Qty: 30 RF: 0 Continued Salud Fe 1.5/30 (28) 1.5 mg-30 mcg (21)/75 mg (7) tablet 1 tab PO DAILY RF: 0 levothyroxine 88 mcg tablet 88 mcg PO DAILY RF: 0 Discontinued trazodone 50 mg tablet 50 mg PO HS PRN (Reason: Sleep) RF: 0 fluoxetine 20 mg capsule 40 mg PO DAILY RF: 0 Stand-Alone Forms: Counts Include [address] [facility] Discharge Orders: Discharge Order (Routine); Ordered 07/10/18 Ordered By: Dipesh Ren Admission Data Admit Date/Time: 07/04/18 14:45 Attending Provider: Shyann Adams Admit Provider: Shyann Adams Primary Care Provider: Jacinta Awad Service: Psychiatry Other Interventions: Discharge Summary Assessment (RN) Last Done: 07/10/18 11:30 PSY Interdisciplinary Discharge Planning Last Done: 07/10/18 11:22 Pending Studies at Discharge: No
== END 2018-07-10 14:26 | disposition home or self-care (01) | DRG 885 ==
LOC: ED 03:19 → 3S 14:45